=== PATIENT | male | born 1960 | race Caucasian/White ===

== ENCOUNTER 2016-04-21 12:00 | Inpatient (IN) | payer OTHER ==
[~2016-04-21] VITALS: Ht 170.2 cm; Wt 81.6 kg
[~2016-04-21 12:00] MED LIST: ABILIFY20 MG PO; ABILIFY5 MG PO; ASPIRIN81 M3 PO; ATORVASTATIN CA20 MG PO; CEFDINIR300 MG PO; CIPRO500 MG PO; CLOZAPINE PO; CLOZARIL100 M1 PO; INVOKANA300 MG PO; KLONOPIN0.5 M1 PO; LANTUS INS100 UNITS/ SUBQ; LANTUS100 U/ML SC; LISINOPRIL2.5 M1 PO; METFORMIN500 MG PO; PAXIL20 M1 PO; SIMVASTATIN40 M1 PO
[2016-04-21 12:01] VITALS: BP 115/70
--- NOTE | 2016-04-21 12:01 | NUR ---
PT PLACED IN BED 2 AT 1156
--- NOTE | 2016-04-21 12:05 | NUR ---
Patient being evaluated by physician at bedside.
--- NOTE | 2016-04-21 12:05 | NUR ---
PT SHYANNE FROM [facility] FOR EVALUATION OF ALTERED MENTAL STATUS. VEGETABLE CANNER STATES PT ALTERED AT [facility] AND STAFF CHECKED HIS BLOOD SGAR AND FOUND IT TO BE 399. HX DM AND PSYCHIATRIC ISSUES. PT IS AWAKE AND CONFUSED.PT DENIES ANY PAIN AND SOB. NO ACUTE DISTRESS NOTED AT THIS TIME. HOB ELEVATED. MD AWARE OF PT'S CONDITION. ALL MONITORS PLACED IN. PROVIDED WARM BLANKET. NEEDS ATTENRDED. WILL CONTINUE TO MONITOR PT.
[2016-04-21] MEDS ORDERED: NACL 0.9% 1,000 ML IV SCH (12:08)
--- NOTE | 2016-04-21 13:24 | NUR ---
RECIEVED FROM GLORIA FULLER REPORT LACTIC ACID 2.5, DR BARAKAT ALREADY NOTIFIED
--- NOTE | 2016-04-21 13:40 | NUR ---
PT IS AA. NO ACUTE DISTRESS NOTED CAT THIS TIME. STRAIGHT CATH DONE AND PT TOLERATED IT WELL.WILL CONTINUE TO MONITOR PT.
--- NOTE | 2016-04-21 14:40 | NUR ---
REPORT GIVEN TO GLORIA LEGER
--- NOTE | 2016-04-21 15:05 | NUR ---
Patient will be admitted to care of DR LEAL. Admited to TELE. Will go to room 124A. Belongings list completed. Report to GLORIA LEGER.
--- NOTE | 2016-04-21 15:15 | NUR ---
RECEIVED REPORT FROM DIVIDEND CLERK. PT ARRIVED ONTO UNIT VIA GURNEY. PT IS ADMITTED FOR ALOC AND HYPERGLYCEMIA. PT IS A/O X 4, AMBULATORY. NO S/S OF ACUTE CARDIAC/RESPIRATORY DISTRESS/DISCOMFORT. VS STABLE. IV TO R HAND 20G INTACT. LBM 04/21/16. SAFETY MEASURES IN PLACE. CALL LIGHT WITHIN REACH. WILL INITIATE PLAN OF CARE AND CONTINUE TO MONITOR.
[2016-04-21 15:59] VITALS: BP 112/60
[2016-04-21] MEDS ORDERED: INFLUENZA VIRUS VACCINE QUAD 0.5 ML SYR IMVAC SCH (16:30)
[2016-04-21] MEDS: NACL 0.9% 1,000 ML IV SCH (16:53)
[2016-04-21] MEDS ORDERED: VANCOMYCIN PER PHARMACY MC PRN (16:55)
[2016-04-21] MEDS ORDERED: MORPHINE SULFATE 2 MG/ML SYR IVP PRN (16:55)
[2016-04-21] MEDS ORDERED: ONDANSETRON 4 MG/2 ML VIAL IVP PRN (16:55)
[2016-04-21] MEDS ORDERED: ACETAMINOPHEN 325 MG TAB PO PRN (16:55)
--- NOTE | 2016-04-21 17:11 | NUR ---
INSTRUCTED PT ON OBTAINING A SPUTUM ON DEEP COUGH AND TO CALL NURSE ONCE DONE
--- NOTE | 2016-04-21 17:30 | NUR ---
PT SITTING ON SIDE OF BED. NO S/S OF ACUTE DISTRESS. PT DENIES PAIN. IV SITE PATENT AND INTACT. CALL LIGHT WITHIN REACH. WILL CONTINUE TO MONITOR.
--- NOTE | 2016-04-21 19:15 | NUR ---
ENDORSED REPORT TO FIELD CROP II FARMWORKER RN CARLY. PT HAS NO S/S OF ACUTE DISTRESS/DISCOMFORT. PT IN STABLE CONDITION.
--- NOTE | 2016-04-21 19:20 | NUR ---
RECEIVED FROM AM RN IN BED AWAKE AND ALERT. ORIENTED X 4. ROM X 4. AMBULATED BY HIMSELF FROM THE RESTROOM. NO SOB. NO PAIN COMPLAINTS DONE. TELEMETRY MONITORING. CALL LIGHT WITH IN REACH. CARE PLANS FOR THE NIGHT DISCUSSED WITH HIM. IVF SITE TO RIGHT HAND #[address] AND NO INFILTRATION NOTED. VERBALIZES NEEDS WELL IN [place].
[2016-04-21 20:32] VITALS: BP 112/47
[2016-04-21] MEDS: ATORVASTATIN 20 MG TAB PO SCH (20:42)
[2016-04-21] MEDS: clonazePAM 0.5 MG TAB PO SCH (20:45)
[2016-04-21] MEDS: BLOOD GLUCOSE MONITORING 1 DEV DEV FS SCH (20:46)
[2016-04-21] MEDS: PIPER/TAZO 2.25GM/D5W PREMIX 50 ML IV SCH (20:51)
[2016-04-21] MEDS: INSULIN ASPART SLIDING SCALE 100 UNITS/ML VIAL SUBQ PRN (20:51)
[2016-04-21] MEDS ORDERED: INSULIN DETEMIR 100 UNITS/ML 10 ML VIAL SUBQ SCH (21:00)
[2016-04-21] MEDS ORDERED: INSULIN GLARGINE RECOMBINAN SUBQ SCH (21:00)
[2016-04-21] MEDS ORDERED: PIPERACILLIN/TAZOBACTAM 2.25 GM in DEXTROSE 5% 50 ML IV SCH (21:00)
[2016-04-21] MEDS ORDERED: VANCOMYCIN 1GM/DEXT 5% PREMIX 200 ML IV SCH ×2 (21:00→22:23)
--- NOTE | 2016-04-21 22:14 | NUR ---
PT. SLEEPING AT [facility]. NO NOTED ADVERSE REACTIONS TO ZOSYN IV GIVEN.
[2016-04-21] MEDS ORDERED: VANCOMYCIN 1,000 MG VIAL ONE (22:29)
--- NOTE | 2016-04-21 22:49 | NUR ---
VANCOMYCIN 1 GM INFUSED ORDERED AND PROTOCOL BY PHARMACY DOSING. WILL MONITOR FOR ANY ADVERSE REACTIONS TO MEDICATION.
--- NOTE | 2016-04-22 00:45 | NUR ---
PT. MIDNIGHT SNACK PROVIDED . ABLE TO VERBALIZE SIMPLE NEEDS. AMBULATES TO RESTROOM BY HIMSELF. STAND BY ASSIST IN CASE HE FALLS. ROM X 4. NEW IVF LINE INSERTED TO LEFT HAND #22 RT PREVIOUS IV SITE DISCONTINUED BY PT. ACCIDENTALLY WITH TIP INTACT.
[2016-04-22 00:47] VITALS: BP 114/50
--- NOTE | 2016-04-22 02:00 | NUR ---
PT. SLEEPING. NO RESTLESSNESS NOTED. TELEMETRY MONITORING. USES CALL LIGHT FOR HELP. NO S/S OF HYPO/HYPERGLYCEMIA NOTED.
[2016-04-22] MEDS: NACL 0.9% 1,000 ML IV SCH ×3 (02:53→20:42)
[2016-04-22] MEDS: PIPER/TAZO 2.25GM/D5W PREMIX 50 ML IV SCH ×3 (04:16→20:42)
[2016-04-22 04:32] VITALS: BP 100/60
--- NOTE | 2016-04-22 05:16 | NUR ---
AWAKE AT THIS TIME. WENT RESTROOM. NO COMPLAINTS DONE. ROM X 4.
[2016-04-22] MEDS: BLOOD GLUCOSE MONITORING 1 DEV DEV FS SCH ×4 (06:11→21:01)
--- NOTE | 2016-04-22 06:18 | NUR ---
BLOOD SUGAR PER FINGERSTICK =134 MG/DL. NO RISS COVERAGE GIVEN. PT. AWAKE AT THIS TIME AND WATCHING TV. VERBALIZES WELL. TELEMETRY MONITORING.
--- NOTE | 2016-04-22 07:00 | NUR ---
PT ALERT AND ORIENTED X3. BREATHING EVENLY AND UNLABORED. NO SIGNS OF ACUTE DISTRESS. SKIN IS WARM AND DRY. NO SIGNS OF ANY BOWEL/BLADDER DISCOMFORT. DENIES OF ANY PAIN AT THIS TIME. ALL NEEDS ATTENDED, SAFETY PRECAUTIONS MAINTAINED. CALL LIGHT WITHIN REACH.
[2016-04-22 07:47] VITALS: BP 113/63
[2016-04-22] MEDS: ARIPiprazole 10 MG TAB PO SCH (08:16)
[2016-04-22] MEDS: clonazePAM 0.5 MG TAB PO SCH ×2 (08:16→20:43)
[2016-04-22] MEDS: ENOXAPARIN 30 MG/0.3 ML SYR SUBQ SCH (08:16)
[2016-04-22] MEDS: PARoxetine 20 MG TAB PO SCH (08:16)
--- NOTE | 2016-04-22 08:59 | NUR ---
PATIENT HAS BEEN SCREENED AND CATEGORIZED HIGH NUTRITION RISK. PATIENT WILL BE SEEN WITHIN 1-2 DAYS OF ADMISSION. 04/22/16-04/23/[address]
--- NOTE | 2016-04-22 09:00 | NUR ---
CM NOTE INITIAL REVIEW SENT TO [facility] FAX# [phone] ATTN: TRAM # [phone]
[2016-04-22] MEDS: VANCOMYCIN 750 MG in DEXTROSE 5% 250 ML IV SCH ×2 (09:25→21:43)
[2016-04-22] MEDS: INSULIN ASPART SLIDING SCALE 100 UNITS/ML VIAL SUBQ PRN ×2 (11:55→20:59)
[2016-04-22 12:00] VITALS: BP 116/61
--- NOTE | 2016-04-22 12:18 | NUR ---
04/22/16 RD INITIAL ASSESSMENT COMPLETED PLEASE REFER TO NUTRITION ASSESSMENT UNDER CARE ACTIVITY FOR ESTIMATED NUTRITIONAL NEEDS. RD RECOMMENDATIONS: 1. CONTINUE CCHO 60 G DIET TOLERATED 2. MEETING 75% OF ESTIMATED KCAL AND PROTEIN NEEDS 3. RD WILL F/U 3-5 DAYS; MODERATE RISK. JUNG MARIE RD
--- NOTE | 2016-04-22 15:45 | NUR ---
WAS SEEN BY Caro MEDINA. RECEIVED NEW ORDERS. PLACE ON MED SURG MONITORING. NOTED AND CARRIED OUT. UNABLE TO COLLECT C.DIFF STOOL AT THIS TIME. CONTINUE TO MONITOR.
[2016-04-22 16:00] VITALS: BP 106/68
--- NOTE | 2016-04-22 18:55 | NUR ---
PT ALERT AND RESPONSIVE NO SIGNS OF ACUTE DISTRESS. ENDORSED TO ONCOMING SENIOR SPECIALIST NURSE FOR CONTINUITY OF CARE.
--- NOTE | 2016-04-22 19:20 | NUR ---
RECEIVED REPORT FROM GLORIA LUCAS AT BEDSIDE. PT AAOX4, SKIN INTACT. PT HAS IV TO LEFT HAND SL; ASYMPTOMATIC, PATENT AND INTACT. ORIENTED PT TO ROOM AND SURROUNDINGS AND USE OF CALL LIGHT. PT VERBALIZES UNDERSTANDING. SAFETY MEASURES IN PLACE. CALL LIGHT WITHIN REACH. WILL CONTINUE TO MONITOR PT.
[2016-04-22 20:00] VITALS: BP 127/73
[2016-04-22] MEDS: ATORVASTATIN 20 MG TAB PO SCH (20:44)
[2016-04-22] MEDS ORDERED: INSULIN DETEMIR 100 UNITS/ML 10 ML VIAL SUBQ SCH (21:00)
--- NOTE | 2016-04-22 21:02 | NUR ---
PT TOLERATED 2100 MEDS WELL. CALL LIGHT WITHIN REACH.
--- NOTE | 2016-04-22 22:40 | NUR ---
C-DIFF STOOL COLLECTED AND SENT TO LAB.
[2016-04-23] VITALS: BP 131/75
--- NOTE | 2016-04-23 00:40 | NUR ---
PT AMBULATED TO THE RESTROOM WITH STEADY GAIT, PT BACK IN BED NOW RESTING COMFORTABLY. WILL CONTINUE TO MONITOR PT.
--- NOTE | 2016-04-23 01:05 | NUR ---
RECEIVED A CALL FROM [facility] LEVEL 15.1. WILL CONTINUE TO MONITOR PT.
--- NOTE | 2016-04-23 02:05 | NUR ---
PT SLEEPING, NO SIGNS OF DISTRESS OR DISCOMFORT NOTED, WILL CONTINUE TO MONITOR PT.
[2016-04-23] MEDS: PIPER/TAZO 2.25GM/D5W PREMIX 50 ML IV SCH ×2 (04:54→13:15)
--- NOTE | 2016-04-23 04:58 | NUR ---
0500 ZOSYN INFUSING AT THIS TIME, WILL CONTINUE TO MONITOR PT.
--- NOTE | 2016-04-23 05:19 | NUR ---
CALLED [facility] TO ASK ABOUT PT'S MEDICATION CLOZAPINE. NO ONE ANSWER THE PHONE. WILL ENDORSED TO DAY SHIFT NURSE.
--- NOTE | 2016-04-23 05:24 | NUR ---
PT PLACED ON CONTACT PRECAUTIONS FOR POSSIBLE C-DIFF. STOOL SENT TO LAB. WILL CONTINUE TO MONITOR PT.
[2016-04-23] MEDS: BLOOD GLUCOSE MONITORING 1 DEV DEV FS SCH ×3 (06:36→15:59)
--- NOTE | 2016-04-23 07:37 | NUR ---
ENDORSED PT IN STABLE CONDITION TO GLORIA BUTLER FOR CONTINUITY OF CARE.
[2016-04-23 08:00] VITALS: BP 142/86
[2016-04-23] MEDS: NACL 0.9% 1,000 ML IV SCH (08:53)
[2016-04-23] MEDS ORDERED: cloZAPine 100 MG TAB PO SCH ×2 (09:00→21:00)
[2016-04-23] MEDS: clonazePAM 0.5 MG TAB PO SCH (09:07)
[2016-04-23] MEDS: ARIPiprazole 10 MG TAB PO SCH (09:08)
[2016-04-23] MEDS: PARoxetine 20 MG TAB PO SCH (09:08)
[2016-04-23] MEDS: ENOXAPARIN 30 MG/0.3 ML SYR SUBQ SCH (09:08)
--- NOTE | 2016-04-23 09:09 | NUR ---
PT ERICA MEDS WELL.
[2016-04-23] MEDS ORDERED: VANCOMYCIN 1,250 MG in DEXTROSE 5% 500 ML IV SCH (10:00)
--- NOTE | 2016-04-23 11:40 | NUR ---
PT RESTING, ALL NEEDS MET AT THIS TIME.
[2016-04-23] MEDS: INSULIN ASPART SLIDING SCALE 100 UNITS/ML VIAL SUBQ PRN ×2 (12:16→15:39)
--- NOTE | 2016-04-23 13:40 | NUR ---
ALL NEEDS MET AT THIS TIME. NO DISTRESS NOTED.
--- NOTE | 2016-04-23 15:21 | NUR ---
CM NOTE REVIEW SENT TO [facility] FAX# [phone] PH# TRAM [phone]
--- NOTE | 2016-04-23 15:40 | NUR ---
VITALS REMAIN STABLE. NO DISTRESS NOTED.
[2016-04-23 16:00] VITALS: BP 132/77
[2016-04-23] MEDS ORDERED: metroNIDAZOLE 500 MG TAB PO SCH (17:00)
--- NOTE | 2016-04-23 17:02 | NUR ---
PT ERICA MEDS WELL.
--- NOTE | 2016-04-23 17:44 | NUR ---
SPOKE WITH TRICE AT [phone]. INFORMED TRICE TO CALL BACK SOON PT ARRIVES TO FACILITY. INFORMED TRICE OF PT'S PRESCRIPTION.
--- NOTE | 2016-04-23 17:44 | NUR ---
ARRANGEMENTS FOR TAXI MADE.
--- NOTE | 2016-04-23 17:54 | NUR ---
EDUCATED PT WITH D/C INSTRUCTIONS. PT VERBALIZED UNDERSTANDING AND SIGNED PAPERWORK. IV REMOVED WITH CANNULA INTACT. WRISTBANDS REMOVED. VITALS STABLE, NO DISTRESS NOTED.
--- NOTE | 2016-04-23 18:10 | NUR ---
PT WAS WHEELED OUT OF HOSPITAL BY COUTIERIER AND PICKED UP BY TAXI IN NO DISTRESS.
--- NOTE | 2016-04-23 18:39 | NUR ---
RECEIVED CALL FROM PT'S FACILITY. PT BROUGHT BACK TO FACILITY SAFELY.
[2016-04-24] MEDS ORDERED: CLINICAL MONITORING MC SCH (09:00)
== END 2016-04-23 18:10 | DRG 723 ==
LOC: MED 12:00 → MTU 14:02
PROVIDERS: ADMIT Hospitalist; ATTEND Hospitalist
DX: B34.9 Viral infection, unspecified (principal); E11.65 Type 2 diabetes mellitus with hyperglycemia; I10 Essential (primary) hypertension; F99 Mental disorder, not otherwise specified; R05 Cough; Z87.898 Personal history of other specified conditions; Z85.72 Personal history of non-Hodgkin lymphomas; Z87.891 Personal history of nicotine dependence

== ENCOUNTER 2016-05-27 19:13 | Inpatient (IN) | payer OTHER ==
[~2016-05-27] VITALS: Ht 170.2 cm; Wt 69.0 kg
--- NOTE | 2016-05-27 19:15 | NUR ---
PT BIBA TO BED 3 AT THIS TIME.
[2016-05-27 19:26] VITALS: BP 145/60
[2016-05-27] MEDS ORDERED: NACL 0.9% 500 ML IV ONE ×2 (19:32)
--- NOTE | 2016-05-27 19:56 | NUR ---
PATIENT PRESENTS TO ED WITH ALOC FROM [facility]. [facility] STATES PT HAS BEEN ALTERED ALL DAY. PT HAS HISTORY OF DIABETES. PT ACCU CK WAS 'HI' UPON ADMIT. PT UNABLE TO ANSWER MEDICAL QUESTIONS AT THIS TIME. LABS DRAWN AT BEDSIDE. IVF STARTED. MD ASSESSED PT. PATIENT POSITIONED FOR COMFORT; HOB ELEVATED; BEDRAILS UP X2; BED DOWN. ER MD MADE AWARE OF PT STATUS.
--- NOTE | 2016-05-27 19:58 | NUR ---
LABS AT BEDSIDE. PT TO CT VIA GURNEY.
[2016-05-27] MEDS ORDERED: INSULIN HUMAN REGULAR 100 UNITS/ML 10 ML VIAL IVP ONE (20:45)
[2016-05-27] MEDS ORDERED: INSULIN HUMAN REGULAR 100 UNITS in NACL 0.9% 100 ML IV ONE (20:45)
[2016-05-27] MEDS ORDERED: NACL 0.9% 1,000 ML IV ONE (20:45)
--- NOTE | 2016-05-27 21:05 | NUR ---
REGULAR INSULIN GIVEN.
[2016-05-27] MEDS ORDERED: ONDANSETRON 4 MG/2 ML VIAL IVP PRN (21:15)
[2016-05-27] MEDS ORDERED: ACETAMINOPHEN 325 MG TAB PO PRN (21:15)
[2016-05-27] MEDS ORDERED: MORPHINE SULFATE 2 MG/ML SYR IVP PRN (21:15)
[2016-05-27] MEDS ORDERED: INSULIN HUMAN REGULAR 100 UNITS in NACL 0.9% 100 ML IV SCH (21:25)
[2016-05-27] MEDS ORDERED: DEXTROSE 50% 50 ML SYR IVP PRN (21:25)
[2016-05-27] MEDS: BLOOD GLUCOSE MONITORING 1 DEV DEV FS SCH ×3 (21:25→23:25)
--- NOTE | 2016-05-27 21:50 | NUR ---
BS 390. DR OLIVARES NOTIFIED. DR OLIVARES WILL CANCEL INSULIN DRIP AND TRANSFER PT TO THE FLOOR.
--- NOTE | 2016-05-27 22:35 | NUR ---
Patient will be admitted to care of . Admited to TELEMETRY. Will go to [id number]. Belongings list completed. Report to GLORIA ANGUIANO.
[2016-05-27] MEDS ORDERED: DILTIAZEM 25 MG/5 ML VIAL IVP ONE (22:40)
[2016-05-27 22:50] VITALS: BP 156/78
--- NOTE | 2016-05-27 22:50 | NUR ---
RECEIVED REPORT FROM ED RN FOR CONTINUITY OF CARE. PATIENT IS ALERT TO SELF. PATIENT IS AGITATED AND COMBATIVE PULLING OFF GOWN AND PULLING AT LINES, WILL FOLLOW UP WITH MD FOR ANXIETY MEDICATION. SHIFT ASSESSMENT DONE, VS TAKEN, STABLE. PT HAS DRYNESS TO BILATERAL HEELS AND DISCOLORATION ON SACRAL AREA. PT HAS PITTING EDEMA +1 BILATERALLY TO LOWER EXTREMITIES. IV TO LT AC 22 GAUGE PATENT AND FLUSHED, IV TO RT FA 18 GAUGE PATENT AND INFUSING FLUIDS WELL. APPLIED WRISTBANDS/ MRSA SWAB COLLECTED. SAFETY/ FALL PRECAUTIONS ENFORCED. CALL LIGHT WITHIN REACH. WILL CONTINUE TO MONITOR.
--- NOTE | 2016-05-27 23:00 | NUR ---
PT COMBATIVE, RESTLESS, NON-COMPLIANT, PULLING AT IV LINES, AND HEART MONITOR. PAGED MD LEAL. WAITING FOR CALL BACK.
--- NOTE | 2016-05-27 23:03 | NUR ---
SPOKE WITH MD LEAL. GAVE ORDERS FOR 1MG ATIVAN IVP Q6H PRN RESTLESSNESS/AGITATION. WILL ENTER NEW ORDERS.
[2016-05-27] MEDS ORDERED: LORazepam 2 MG/ML VIAL IVP PRN (23:05)
[2016-05-27] MEDS: NACL 0.9% 1,000 ML IV SCH (23:13)
--- NOTE | 2016-05-27 23:15 | NUR ---
PT AGITATED PULLED OUT IV TO LT AC, CANNULA INTACT. MEDICATED WITH ATIVAN PER MD ORDER FOR AGITATION. WILL CONTINUE TO MONITOR.
[2016-05-28] VITALS (10 sets, daily range): BP systolic 116–159; BP diastolic 68–90
[2016-05-28] MEDS: BLOOD GLUCOSE MONITORING 1 DEV DEV FS SCH ×12 (00:47→23:19)
[2016-05-28] MEDS: INSULIN LISPRO SLIDING SCALE 100 UNITS/ML VIAL SUBQ PRN ×6 (00:50→23:22)
--- NOTE | 2016-05-28 00:58 | NUR ---
VS TAKEN, STABLE. BLOOD SUGAR TAKEN, 392, ADMINISTERED INSULIN PER MD ORDER. PATIENT IS SLEEPING. NO S/S OF DISTRESS NOTED ON ROOM AIR. WILL CONTINUE TO MONITOR.
--- NOTE | 2016-05-28 03:40 | NUR ---
BLOOD SUGAR TAKEN, 281, WILL REASSESS. PT IS SLEEPING. WILL CONTINUE TO MONITOR.
--- NOTE | 2016-05-28 04:32 | NUR ---
VS TAKEN, STABLE. PATIENT IS SLEEPING. REPOSITIONED PATIENT AND PROVIDED CHANGE OF LINENS. WILL CONTINUE TO MONITOR.
--- NOTE | 2016-05-28 06:10 | NUR ---
BLOOD SUGAR 358, ADMINISTERED INSULIN PER MD ORDER. PT IS SLEEPING. WILL CONTINUE TO MONITOR.
[2016-05-28] MEDS: NACL 0.9% 1,000 ML IV SCH ×2 (06:12→12:29)
--- NOTE | 2016-05-28 07:15 | NUR ---
ENDORSED PATIENT TO DAY RN FOR CONTINUITY OF CARE, PATIENT IS SLEEPING IN STABLE CONDITION.
--- NOTE | 2016-05-28 07:55 | NUR ---
PATIENT HAS BEEN SCREENED AND CATEGORIZED HIGH NUTRITION RISK. PATIENT WILL BE SEEN WITHIN 1-2 DAYS OF ADMISSION. 05/28/16-05/29/[address]
[2016-05-28] MEDS ORDERED: CLOZAPINE 200 MG PO SCH (09:00)
--- NOTE | 2016-05-28 09:00 | NUR ---
RECEIVED SBAR REPORT FROM NOEMI CASTRO. PT RESTING IN BED. AAOX1. DENIES PAIN. NO S/S OF RESPIRATORY DISTRESS. IV SITE PATENT AND INTACT. SAFETY MEASURES ENSURED. BED IN LOWEST POSITION. CALL LIGHT WITHIN REACH. LINENS CLEAN AND DRY. WILL CONTINUE TO MONITOR.
[2016-05-28] MEDS: PARoxetine 20 MG TAB PO SCH (09:04)
[2016-05-28] MEDS: cloZAPine 100 MG TAB PO SCH (09:04)
[2016-05-28] MEDS: LISINOPRIL 5 MG TAB PO SCH (09:04)
[2016-05-28] MEDS: ARIPiprazole 10 MG TAB PO SCH (09:04)
[2016-05-28] MEDS: clonazePAM 0.5 MG TAB PO SCH ×2 (09:05→21:07)
[2016-05-28] MEDS: ENOXAPARIN 30 MG/0.3 ML SYR SUBQ SCH (09:05)
[2016-05-28] MEDS: CLINICAL MONITORING MC SCH (09:05)
--- NOTE | 2016-05-28 11:20 | NUR ---
PATIENT SEEN BY DR. HUTSON. PATIENT LETHARGIC, NON RESPONSIVE TO PAINFUL STIMULI. RAPID RESPONSE CALLED. VITALS 157/82, HR 92, O2 98%, RR 24. BS CHECKED, 257. CT HEAD ORDERED, PATIENT TAKEN TO CT AND TRANSFERRED TO ICU.
[2016-05-28] MEDS ORDERED: POTASSIUM CHLORIDE 40 MEQ in NACL 0.9% 1,000 ML IV SCH (11:30)
--- NOTE | 2016-05-28 11:45 | NUR ---
TRANSFER OF CARE ENDORSED TO GLORIA ZHANG. PT STILL LETHARGIC, SNORING. NON RESPONSIVE TO PAINFUL STIMULI.
--- NOTE | 2016-05-28 11:45 | NUR ---
TRANSFERRED PT FROM TELE TO ICU BED 3. PT IS UNRESPONSIVE TO NAME STIMULI. ATTACHED PT TO BEDSIDE MONITOR SHOWS SR. PT ON ROOM AIR, NO S/S OF RESPIRATORY DISTRESS NOTED. LUNG SOUNDS CLEAR UPON AUSCULTATION.ABDOMEN SOFT WITH ACTIVE BOWEL SOUNDS. A LARGE AMOUNT OF INCONTINENT URINE NOTED ON PADS, CLEANED PT. SKIN INTACT, HOB ELEVATED 30 DEGREES, SIDE RAILS UPX2 WITH LOW BED POSITION. WILL CONTINUE TO MONITOR.
--- NOTE | 2016-05-28 12:57 | NUR ---
05/28/16 RD INITIAL ASSESSMENT COMPLETED PLEASE REFER TO NUTRITION ASSESSMENT UNDER CARE ACTIVITY FOR ESTIMATED NUTRITIONAL NEEDS. RD RECOMMENDATIONS: 1. CONTINUE CCHO 60 GM DIET TOLERATED PER MD 2. SHOULD PT REQUIRE NUTRITION SUPPORT PLEASE CONSULT RD PRN. 3. RD WILL F/U 2-3 DAYS; HIGH RISK. JUNG MARIE RD
--- NOTE | 2016-05-28 13:00 | NUR ---
PT IS RESTLESS, TRIED TO PULL LEADS. REORIENTED PT .
--- NOTE | 2016-05-28 13:15 | NUR ---
ORTIZ CATH FR. 16 INSERTED ASEPTICALLY. OBTAINED 800 ML CLEAR STRAW COLORED URINE AT ONCE. ORTIZ CATH CLAMPED.
--- NOTE | 2016-05-28 14:00 | NUR ---
ORTIZ CATH. UNCLAMPED OBTAINED 600 ML OF URINE. PT SLEEPING DOES NOT APPEAR TO BE IN ANY DISTRESS
--- NOTE | 2016-05-28 14:18 | NUR ---
CM NOTE INITIAL REVIEW SENT TO [facility] FAX# [phone] PH# TRAM [phone]
--- NOTE | 2016-05-28 15:15 | NUR ---
PT SLEEPING IN BED, NO S/S OF RESPIRATORY DISTRESS NOTED. WILL CONTINUE TO MONITOR.
--- NOTE | 2016-05-28 16:36 | NUR ---
PT AWAKE, ORIENTED PT DATE , TIME, PLACE.
--- NOTE | 2016-05-28 17:11 | NUR ---
PT SLEEPING AGAIN. NO SOB. VSS AT THIS TIME. CALL LIGHT IN REACH, WILL CONTINUE TO MONITOR.
[2016-05-28] MEDS ORDERED: INFLUENZA VIRUS VACCINE QUAD 0.5 ML SYR IMVAC SCH (18:00)
[2016-05-28] MEDS ORDERED: PNEUMOCOCCAL VACCINE 23 MCG/0.5 ML VIAL IMVAC SCH (18:05)
--- NOTE | 2016-05-28 18:14 | NUR ---
FEED PT DINNER ,GOOD APPETITE. ATE 100% OF FOOD.
--- NOTE | 2016-05-28 18:27 | NUR ---
PT SLEEPING IN BED. SAFETY MAINTAINED. CALL LIGHT IN REACH. NO S/S OF RESPIRATORY DISTRESS NOTED. NO DISCOMFORT OR PAIN COMPLAINED. WILL CONTINUE TO MONITOR.
--- NOTE | 2016-05-28 18:37 | NUR ---
PAGED DR. HUTSON REGARDING PT POTASSIUM LEVEL. DR. ROMERO ETL SOFTWARE ENGINEER . WILL FOLLOW UP.
--- NOTE | 2016-05-28 18:40 | NUR ---
DR. ROMERO CALLED BACK. NOTIFIED OF PT POTASSIUM LEVEL AND PT'S CONDITION. PER DR. ROMERO, GIVE PT KCL RIDER 20 MEQ. WILL CARRY OUT.
--- NOTE | 2016-05-28 19:09 | NUR ---
BEDSIDE REPORT GIVEN TO NERA. NUNO VSS AT THIS TIME.
--- NOTE | 2016-05-28 19:13 | NUR ---
RECEIVED BEDSIDE REPORT FROM LEATHA CASTRO. PATIENT IS ASLEEP IN BED, WITH NO SIGNS OF SHORTNESS OF BREATH OR ACUTE DISTRESS NOTED. PATIENT IS ON ROOM AIR. VITAL SIGNS ARE WNL. SINUS RHYTHM ON CLASSROOM TECHNOLOGY TECHNICIAN. BREATH SOUNDS ARE CLEAR UPON AUSCULTATION WITH BOWEL SOUNDS PRESENT. THERE IS A #20 IN THE PATIENT'S RIGHT UPPER ARM RECEIVING NORMAL SALINE 75 ML/HR. SITE IS DRY, INTACT, ASYMPTOMATIC. INITIAL ASSESSMENT COMPLETED. HOB AT 30 DEGREES WITH BED IN LOW POSITION WITH SIDE RAILS UP X2. WILL CONTINUE TO MONITOR PATIENT. Addendum: 05/28/16 at 1938 by Onelia Wagner RN THERE IS A ORTIZ CATHETER PRESENT DRAINING TO GRAVITY WITH SMALL AMOUNT OF CLEAR YELLOW URINE NOTED.
[2016-05-28] MEDS ORDERED: KCL 20 MEQ/WATER INJ PREMIX 100 ML IV SCH (20:00)
[2016-05-28] MEDS ORDERED: CLOZAPINE 300 MG PO SCH (21:00)
[2016-05-28] MEDS ORDERED: cloZAPine 100 MG TAB PO SCH (21:00)
[2016-05-28] MEDS: ATORVASTATIN 20 MG TAB PO SCH (21:02)
--- NOTE | 2016-05-28 21:09 | NUR ---
PATIENT SLEEPING IN BED, BUT CAN BE AROUSED BY NAME. TOLERATED SCHEDULED MEDICATION ADMINISTRATION. NO SIGNS OF SOB OR DISCOMFORT NOTED. CONTINUE TO MONITOR PATIENT.
[2016-05-28] MEDS: INSULIN DETEMIR 100 UNITS/ML 10 ML VIAL SUBQ SCH (21:26)
--- NOTE | 2016-05-28 23:00 | NUR ---
PATIENT SLEEPING IN BED. VITAL SIGNS ARE STABLE WITH NO SIGNS OF SOB OR DISTRESS NOTED. HOB AT 30 DEGREES WITH BED IN LOW POSITION. CONTINUE TO MONITOR PATIENT.
[2016-05-29] VITALS (11 sets, daily range): BP systolic 125–151; BP diastolic 73–87
[2016-05-29] MEDS: NACL 0.9% 1,000 ML IV SCH ×2 (01:05→03:48)
--- NOTE | 2016-05-29 01:58 | NUR ---
PATIENT SLEEPING IN BED. PATIENT'S BREATHING IS EVEN AND UNLABORED. CONTINUE TO MONITOR PATIENT.
--- NOTE | 2016-05-29 04:21 | NUR ---
IRON INSTALLER AT BEDSIDE FOR SCHEDULED MORNING LAB DRAWS.
[2016-05-29] MEDS: BLOOD GLUCOSE MONITORING 1 DEV DEV FS SCH ×4 (05:56→23:13)
[2016-05-29] MEDS: INSULIN LISPRO SLIDING SCALE 100 UNITS/ML VIAL SUBQ PRN ×4 (05:59→23:12)
--- NOTE | 2016-05-29 06:15 | NUR ---
MORNING CARE RENDERED. CHANGED LINENS AND GOWN. PATIENT REPOSITIONED FOR COMFORT. NO SIGNS OF SOB NOTED. HOB AT 30 DEGREES WITH BED IN LOW POSITION. CONTINUE TO MONITOR.
--- NOTE | 2016-05-29 07:09 | NUR ---
PATIENT SLEEPING IN BED AND IS STABLE. ALL PATIENT'S NEEDS ATTENDED TO DURING SHIFT. ENDORSED CONTINUITY OF CARE TO SHAUN CASTRO.
--- NOTE | 2016-05-29 07:25 | NUR ---
RECEIVED PT FROM GLORIA SEGOVIA. PT SEEN AT BEDSIDE SLEEPING COMFORTABLY. PT IS AAOX4, ON ROOM AIR WITH NO S/S DISTRESS OR SOB. PT ON HEAD FILTER PRESS TENDER; RIGHT UPPER ARM 20G RUNNING IVF AT THIS TIME. IV IS PATENT AND INTACT WITH VISIBLE BLOOD RETURN. PT DENIES PAIN AT THIS TIME; ABLE TO MOVE X4 EXTREMITIES AND TURN SELF. SKIN IS WARM, DRY, INTACT. ORTIZ CATHETER IN PLACE DRAINING LIGHT, YELLOW URINE AT THIS TIME. SAFETY MEASURES CHECKED, CALL LIGHT LEFT AT BEDSIDE. WILL CONTINUE TO MONITOR.
--- NOTE | 2016-05-29 08:15 | NUR ---
ADMITTING AT BEDSIDE. PT SIGNED FOR ADMISSION PAPERWORK.
[2016-05-29] MEDS: LISINOPRIL 5 MG TAB PO SCH (08:37)
[2016-05-29] MEDS: clonazePAM 0.5 MG TAB PO SCH (08:39)
[2016-05-29] MEDS: PARoxetine 20 MG TAB PO SCH (08:39)
[2016-05-29] MEDS: ARIPiprazole 10 MG TAB PO SCH (08:40)
[2016-05-29] MEDS: cloZAPine 100 MG TAB PO SCH (08:41)
[2016-05-29] MEDS: ENOXAPARIN 30 MG/0.3 ML SYR SUBQ SCH (08:44)
[2016-05-29] MEDS: CLINICAL MONITORING MC SCH (09:00)
--- NOTE | 2016-05-29 09:38 | NUR ---
CLINICAL MONITORING: CLOZAPINE NON-ADMINISTERED. IT IS FOR PHARMACY MONITORING, PER [place], PHARMACY.
--- NOTE | 2016-05-29 11:21 | NUR ---
PER PATIENT, HE WANTS PNA AND FLU VAX GIVEN NOW. EDUCATION FORMS GIVEN FOR PNA AND FLU VAX. PT VERBALIZED UNDERSTANDING
--- NOTE | 2016-05-29 11:35 | NUR ---
ROUTINE MEDICATIONS ADMINISTERED WITH EDUCATION. FLU AND PNA VAX GIVEN WITH EDUCATION. PT VERBALIZED UNDERSTANDING. PT TOLERATED WELL. WILL CONTINUE TO MONITOR.
--- NOTE | 2016-05-29 12:04 | NUR ---
ASSISTED WITH LUNCH TRAY.
--- NOTE | 2016-05-29 12:30 | NUR ---
DR HUTSON AT NURSING STATION. UPDATED MD ON PATIENT CONDITION. WILL FOLLOW UP ON ORDERS.
--- NOTE | 2016-05-29 12:33 | NUR ---
GOWN CHANGED FOR PATIENT.
[2016-05-29] MEDS ORDERED: POTASSIUM CHLORIDE 10 MEQ TABER PO SCH (13:00)
[2016-05-29] MEDS ORDERED: MAG SULF 2000 MG/WATER PREMIX 50 ML IV SCH (13:30)
--- NOTE | 2016-05-29 14:00 | NUR ---
PT SLEEPING WITH NO S/S DISTRESS OR SOB AT THIS TIME.
--- NOTE | 2016-05-29 15:55 | NUR ---
PT REQUESTED FOR BEDPAN. PT HAD VERY SMALL BM. CLEANED, KITA CARE AND ORTIZ CARE GIVEN. WILL CONTINUE TO MONITOR.
--- NOTE | 2016-05-29 17:36 | NUR ---
ASSISTED PATIENT WITH DINNER TRAY.
--- NOTE | 2016-05-29 18:20 | NUR ---
RECEIVED REPORT FROM SHAUN, ICU NURSE. SHE WILL BRING PT OVER IN THE NEXT 10 MIN OR SO. WILL GET THE ROOM READY.
--- NOTE | 2016-05-29 18:30 | NUR ---
PT CAME ON THE FLOOR WITH SHAUN, ICU NURSE, ON A GURNEY. PT WAS ABLE TO SCOOT FROM ONE GURNEY TO THE OTHER. ATTACHED THE TELE MONITOR, HUNG THE IV, HUNG THE ORTIZ CATH BAG TO THE BED. PT IS ALERT AND ORIENTED. HE IS HUNGRY. WOULD LIKE A SANDWICH. I WILL BRING HIM ONE. SKIN IS INTACT. IV ON THE R UPPER ARM NS AT 75ML. PT IS VERBAL, SPEAKS MAORI. PT IS ON ROOM AIR. I INTRODUCED MYSELF, UPDATED THE BOARD. WILL ENDORSE TO THE FINISHING SUPERVISOR NURSE.
--- NOTE | 2016-05-29 18:30 | NUR ---
TRANSFERRED PATIENT TO [facility]. REPORT GIVEN TO GLORIA ROBERTS. PLACED ON PRACTICAL NURSING FACULTY WITH RN AT BEDSIDE.
--- NOTE | 2016-05-29 19:10 | NUR ---
ENDORSED PT THE STORAGE GARAGE ATTENDANT NURSE AT BEDSIDE FOR CONTINUITY OF CARE. PT IS IN STABLE CONDITION. I WILL GET HIM A SANDWICH BEFORE I LEAVE.
--- NOTE | 2016-05-29 19:15 | NUR ---
RECEIVED PT AAOX4, DENIES ANY PAIN, VITAL SIGNS STABLE, DENIES ANY PAIN, IVF INFUSING WELL, SAFETY MEASURES IN PLACE, CALL LIGHT WITHIN REACH.
[2016-05-29] MEDS: ATORVASTATIN 20 MG TAB PO SCH (20:10)
[2016-05-29] MEDS: INSULIN DETEMIR 100 UNITS/ML 10 ML VIAL SUBQ SCH (20:14)
--- NOTE | 2016-05-29 20:20 | NUR ---
BLOOD SUGAR CHECKED WITH 399 RESULT, DUE LEVIMIR SUB-Q GIVEN, SNACK PROVIDED, ALL NEEDS ATTENDED.
[2016-05-29] MEDS ORDERED: cloZAPine 100 MG TAB PO SCH (21:00)
--- NOTE | 2016-05-29 23:23 | NUR ---
PT SLEEPING, EASILY AROUSABLE, VITAL SIGNS TAKEN, BP SLIGHTLY ELEVATED, ASYMPTOMATIC, DENIES ANY PAIN, NO SOB NOTED, BLOOD SUGAR CHECKED WITH 293 RESULT, COVERAGE GIVE, IVF INFUSING WELL, CONTINUE TO MONITOR CLOSELY.
[2016-05-30] VITALS: BP 154/94
[2016-05-30] MEDS: NACL 0.9% 1,000 ML IV SCH ×2 (03:45→13:20)
[2016-05-30 04:00] VITALS: BP 149/79
--- NOTE | 2016-05-30 04:00 | NUR ---
PT SLEEPING, EASILY AROUSABLE, VITAL SIGNS TAKEN, SCRAP DROP CRANE OPERATOR SLIGHTLY ELEVATED, ASYMPTOMATIC, IVF INFUSING WELL, MONITORED CLOSELY.
[2016-05-30] MEDS: INSULIN LISPRO SLIDING SCALE 100 UNITS/ML VIAL SUBQ PRN ×2 (05:23→13:19)
[2016-05-30] MEDS: BLOOD GLUCOSE MONITORING 1 DEV DEV FS SCH ×2 (05:25→12:00)
--- NOTE | 2016-05-30 05:30 | NUR ---
BLOOD SUGAR CHECKED WITH 201 RESULT, COVERAGE GIVEN, COFFEE AND CRACKERS PROVIDED PER REQUEST, MONITORED CLOSELY.
--- NOTE | 2016-05-30 07:15 | NUR ---
PT AWAKE, NO DISTRESS NOTED, REPORT GIVEN TO GLORIA ROBERTS FOR CONTINUITY OF CARE.
--- NOTE | 2016-05-30 07:16 | NUR ---
RECEIVED REPORT FROM THE MACHINE TOOL REBUILDER NURSE AT BEDSIDE. PT IS ALERT AND ORIENTED. HE IS HUNGRY. PT IS PATIENTLY WAITING FOR HIS BREAKFAST TRAY. HE HAS NO COMPLAINTS. NO SIGNS OF DISTRESS. DENIED ANY PAIN. PT'S IV INTACT; R UA 20G NS AT 75ML/HR. SKIN IS INTACT. HE HAS A ORTIZ CATH. YELLOW, CLEAR URINE 600ML IN BAG. I EMPTIED IT. I UPDATED THE BOARD. EXPLAINED PHYSICAL THERAPY MAY OR MAY NOT BE HERE SINCE TODAY IS TUESDAY. I ENCOURAGE HIM TO CALL ME FIRST TIME HE GETS UP TO GO TO THE BATHROOM, TO CHECK ON HIS STEADINESS. CALL LIGHT WITHIN REACH. WILL CONTINUE TO MONITOR PT.
[2016-05-30 08:00] VITALS: BP 151/90
[2016-05-30] MEDS: CLINICAL MONITORING MC SCH (09:00)
[2016-05-30] MEDS: PARoxetine 20 MG TAB PO SCH (09:10)
[2016-05-30] MEDS: ARIPiprazole 10 MG TAB PO SCH (09:10)
[2016-05-30] MEDS: LISINOPRIL 5 MG TAB PO SCH (09:10)
[2016-05-30] MEDS: ENOXAPARIN 30 MG/0.3 ML SYR SUBQ SCH (09:11)
[2016-05-30] MEDS: cloZAPine 100 MG TAB PO SCH (09:11)
--- NOTE | 2016-05-30 09:15 | NUR ---
ADMINISTERED ALL MORNING MEDS. PT TOLERATED THEM WELL. MET ALL PT'S NEEDS. ALL SAFETY MEASURES IN PLACE. WILL CONTINUE TO MONITOR PT.
--- NOTE | 2016-05-30 11:25 | NUR ---
ASSISTED PT TO THE BATHROOM. PT HAD A BM. ASSISTED HIM BACK INTO BED. STEADY GAIT. WILL CONTINUE TO MONITOR PT.
[2016-05-30 12:00] VITALS: BP 162/96
--- NOTE | 2016-05-30 13:00 | NUR ---
PT IS RESTING AFTER EATING 100% OF HIS LUNCH. PT HAS NO COMPLAINTS. NO PAIN. NO SIGNS OF DISTRESS. WILL CONTINUE TO MONITOR PT.
[2016-05-30] MEDS ORDERED: CLOZAPINE100 M1 PO (13:30)
--- NOTE | 2016-05-30 15:00 | NUR ---
WENT OVER HIS DC EDUCATION AT BEDSIDE. WENT OVER HIS F/U WITH HIS PCP, HIS MEDICATIONS CHANGES, NUTRITION AND HOW TO BETTER CONTROL HIS DM. ANSWERED ALL PT'S QUESTIONS. PT VERBALIZED UNDERSTANDING. SIGNED ALL APPROPRIATE PAPER WORK. REMOVED HIS IV CANNULA INTACT, REMOVED HIS ARM BANDS. REMOVED HIS ORTIZ CATH. PT TOLERATED WELL. NO SIGNS OF BLEEDING NOTED. HE WILL GET DRESSED INTO HIS PERSONAL CLOTHES AND WILL GATHER HIS PERSONAL BELONGINGS. PT IS STABLE. ALERT AND ORIENTED. WILL LET ME KNOW WHEN HIS RIDE GETS HERE SO WE CAN WHEEL HIM OUT.
[2016-05-30 15:15] VITALS: BP 151/90
--- NOTE | 2016-05-30 15:40 | NUR ---
PT WAS WHEELED OUT BY THE P[employer] PAINT TRIMMER WITH HASSOCK MAKER AT HIS SIDE. PT HAS ALL HIS PERSONAL BELONGINGS INCLUDING HIS DC PACKET. REMINDED HIM TO F/U WITH HIS PCP AND TAKE ALL HIS MEDICATIONS. PT VERBALIZED UNDERSTANDING. PT WAS WHEELED OUT TO THE FRONT, IN STABLE CONDITION.
== END 2016-05-30 15:40 | disposition home or self-care (01) | DRG 420 ==
LOC: MED 19:13 → MTU 21:20 → MIC 05-28 12:27 → MTU 05-29 18:37
PROVIDERS: ADMIT Internal Medicine Pulmonary Disease; ATTEND Internal Medicine Pulmonary Disease
DX: E11.01 Type 2 diabetes mellitus with hyperosmolarity with coma (principal); G92 Toxic encephalopathy; E11.65 Type 2 diabetes mellitus with hyperglycemia; Z66 Do not resuscitate; I10 Essential (primary) hypertension; F99 Mental disorder, not otherwise specified; N39.0 Urinary tract infection, site not specified; Z91.19 Patient's noncompliance with other medical treatment and regimen

== ENCOUNTER 2016-12-04 11:41 | Observation (INO) | payer OTHER ==
[~2016-12-04] VITALS: Ht 170.2 cm; Wt 77.1 kg
[~2016-12-04 11:41] MED LIST changes: -ABILIFY20 MG PO; -ABILIFY5 MG PO; +ARIP20TA1 PO; -ASPIRIN81 M3 PO; +ATOR20TA40 PO; -ATORVASTATIN CA20 MG PO; -CEFDINIR300 MG PO; -CIPRO500 MG PO; -CLOZAPINE PO; -CLOZARIL100 M1 PO; +GLU500 PO; -INVOKANA300 MG PO; -KLONOPIN0.5 M1 PO; -LANTUS INS100 UNITS/ SUBQ; +LANTUS SUBQ; -LANTUS100 U/ML SC; +LISI2.5T5 PO; -LISINOPRIL2.5 M1 PO; -METFORMIN500 MG PO; +PAX20 PO; -PAXIL20 M1 PO; -SIMVASTATIN40 M1 PO; +[UNRECOGNIZED DRUG - CODE] PO; +[UNRECOGNIZED DRUG - CODE] PO
[2016-12-04 11:44] VITALS: BP 111/64
[2016-12-04] MEDS ORDERED: ATOR20TA PO (12:01)
[2016-12-04] MEDS ORDERED: CLON0.5T PO (12:01)
[2016-12-04] MEDS ORDERED: FERR325E14 PO (12:01)
[2016-12-04] MEDS ORDERED: CLOZ100T PO (12:01)
[2016-12-04] MEDS ORDERED: FOLI1TAB90 PO (12:01)
[2016-12-04 12:30] LABS: BASOPHILS # (AUTO) 0.3 K/uL (0.00-0.22); HEMOGLOBIN 12.7 g/dL (12.0-18.0)
[2016-12-04 12:36] LABS: BASOPHILS % (AUTO) 4.8 % (0.0-2.0); EOSINOPHILS % (AUTO) 0.3 % (0.0-4.0); HEMATOCRIT 38.1 % (36-52); LYMPHOCYTES # (AUTO) 1.3 K/uL (2.0-11.5); LYMPHOCYTES % (AUTO) 20.4 % (20.5-51.1); MEAN CORPUSCULAR HEMOGLOBIN 31 pg (27-31); MEAN CORPUSCULAR HGB CONC 33 g/dL (33-37); MEAN CORPUSCULAR VOLUME 92 fL (80-94); MONOCYTES # (AUTO) 0.4 K/uL (0.8-1.0); MONOCYTES % (AUTO) 6.1 % (1.7-9.3); NEUTROPHILS # (AUTO) 4.5 K/uL (1.8-7.7); NEUTROPHILS % (AUTO) 68.4 % (42.2-75.2); PLATELET COUNT (AUTO) 232 K/uL (140-450); RED BLOOD CELL COUNT(AUTO) 4.13 MIL/uL (4.20-6.10); RED CELL DISTRIBUTION WIDTH 12.4 % (11.6-13.7); WHITE BLOOD COUNT (AUTO) 6.5 K/uL (4.8-10.8)
[2016-12-04 12:44] LABS: CHLORIDE 96 mmol/L (98-107); POTASSIUM 4.6 mmol/L (3.5-5.1); SODIUM SERUM 130 mmol/L (136-145)
[2016-12-04 12:45] LABS: ANION GAP 17.1 (8-16); CARBON DIOXIDE 21.5 mmol/L (21-32); CREATININE 0.9 mg/dL (0.7-1.3); GFR ARICAN-AMERICAN 113 mL/min (>90); GLUCOSE 273 mg/dL (74-106); UREA NITROGEN, BLOOD 20 mg/dL (7-18)
[2016-12-04 12:51] LABS: ALBUMIN 3.5 g/dL (3.4-5.0); ASPARTATE AMINOTRANSFERASE 16 U/L (15-37); LIPASE 193 U/L (73-393); TOTAL BILIRUBIN 0.3 mg/dL (0.0-1.0)
[2016-12-04] MEDS ORDERED: NACL 0.9% 500 ML IV SCH (14:25)
[2016-12-04 14:41] LABS: APPEARANCE,URINE CLEAR (CLEAR); BILIRUBIN,URINE NEGATIVE (NEGATIVE); BLOOD, URINE TRACE-I (NEGATIVE); COLOR,URINE YELLOW (YELLOW); LEUKOCYTE ESTERASE ,URINE NEGATIVE (NEGATIVE); NITRITE, URINE NEGATIVE (NEGATIVE); UGLUCOSE 3+ (NEGATIVE)
[2016-12-04 14:48] LABS: RBC,URINE 0-5 (RARE) /HPF (0-5); WBC,URINE 0-5 (RARE) /HPF (0-5)
[2016-12-04 14:50] LABS: BARBITURATE, URINE NEGATIVE ng/ml (NEG <=200); BENZODIAZEPINE, URINE NEGATIVE ng/mL (NEG <=200); CANNABINOID, URINE NEGATIVE ng/mL (NEG <=50); COCAINE, URINE NEGATIVE ng/mL (NEG <=300); OPIATE, URINE NEGATIVE ng/mL (NEG <=2000); PHENCYCLIDINE SCREEN,URINE NEGATIVE ng/mL (NEG <=25)
[2016-12-04] MEDS ORDERED: LORazepam 2 MG/ML VIAL IVP PRN (15:30)
[2016-12-04] MEDS ORDERED: ONDANSETRON 4 MG/2 ML VIAL IVP PRN (15:30)
[2016-12-04] MEDS ORDERED: DEXTROSE 50% 50 ML SYR IVP PRN (15:30)
[2016-12-04] MEDS ORDERED: ACETAMINOPHEN 325 MG TAB PO PRN (15:30)
[2016-12-04 16:22] VITALS: BP 158/83
[2016-12-04] MEDS: NACL 0.9% 1,000 ML IV SCH (17:05)
[2016-12-04] MEDS: INSULIN LISPRO SLIDING SCALE 100 UNITS/ML VIAL SUBQ PRN ×2 (17:11→20:29)
[2016-12-04] MEDS: BLOOD GLUCOSE MONITORING 1 DEV DEV FS SCH ×2 (17:16→20:23)
[2016-12-04 20:00] VITALS: BP 119/71
[2016-12-05] VITALS: BP 113/63
[2016-12-05] MEDS: NACL 0.9% 1,000 ML IV SCH ×2 (01:30→11:30)
[2016-12-05 04:00] VITALS: BP 140/85
[2016-12-05] MEDS: BLOOD GLUCOSE MONITORING 1 DEV DEV FS SCH ×2 (06:41→11:30)
[2016-12-05] MEDS: INSULIN LISPRO SLIDING SCALE 100 UNITS/ML VIAL SUBQ PRN ×2 (07:01→13:17)
[2016-12-05 07:58] LABS: BASOPHILS # (AUTO) 0.2 K/uL (0.00-0.22); BASOPHILS % (AUTO) 2.7 % (0.0-2.0); EOSINOPHILS % (AUTO) 0.2 % (0.0-4.0); HEMATOCRIT 38.5 % (36-52); HEMOGLOBIN 12.5 g/dL (12.0-18.0); LYMPHOCYTES # (AUTO) 1.4 K/uL (2.0-11.5); LYMPHOCYTES % (AUTO) 19.2 % (20.5-51.1); MEAN CORPUSCULAR HEMOGLOBIN 30 pg (27-31); MEAN CORPUSCULAR HGB CONC 32 g/dL (33-37); MEAN CORPUSCULAR VOLUME 93 fL (80-94); MONOCYTES # (AUTO) 0.4 K/uL (0.8-1.0); MONOCYTES % (AUTO) 5.5 % (1.7-9.3); NEUTROPHILS # (AUTO) 5.1 K/uL (1.8-7.7); NEUTROPHILS % (AUTO) 72.4 % (42.2-75.2); PLATELET COUNT (AUTO) 222 K/uL (140-450); RED BLOOD CELL COUNT(AUTO) 4.17 MIL/uL (4.20-6.10); RED CELL DISTRIBUTION WIDTH 12.5 % (11.6-13.7); WHITE BLOOD COUNT (AUTO) 7.1 K/uL (4.8-10.8)
[2016-12-05 08:00] VITALS: BP 149/83
[2016-12-05 08:09] LABS: ANION GAP 9.7 (8-16); CARBON DIOXIDE 25.8 mmol/L (21-32); CREATININE 0.7 mg/dL (0.7-1.3); POTASSIUM 4.5 mmol/L (3.5-5.1)
[2016-12-05 08:18] LABS: ALBUMIN 3.1 g/dL (3.4-5.0); MAGNESIUM 1.8 mg/dL (1.8-2.4)
[2016-12-05 08:19] LABS: TOTAL BILIRUBIN 0.3 mg/dL (0.0-1.0)
[2016-12-05] MEDS ORDERED: ENOXAPARIN 40 MG/0.4 ML SYR SUBQ SCH (09:00)
== END 2016-12-05 17:29 | disposition home or self-care (01) ==
LOC: MED 11:41 → MTU 15:33 → UNDOADMIN 15:33
PROVIDERS: ADMIT Hospitalist; ATTEND Hospitalist
DX: R53.1 Weakness (principal); F20.9 Schizophrenia, unspecified; E11.9 Type 2 diabetes mellitus without complications; I10 Essential (primary) hypertension; E86.0 Dehydration; E87.1 Hypo-osmolality and hyponatremia; F17.210 Nicotine dependence, cigarettes, uncomplicated
CPT/HCPCS: 36415; 70450; 71010; 80053; 80305; 81001; 82140; 82948; 83690; 83735; 85025; 87081; 93005; 96360; 96361; 96372; 99285; G0378; G0482; J1650; J1815; J7030

== ENCOUNTER 2017-09-25 13:14 | Inpatient (IN) | payer OTHER ==
[~2017-09-25] VITALS: Ht 170.2 cm; Wt 77.1 kg
[~2017-09-25 13:14] MED LIST changes: +ATOR20TA PO; +CLON0.5T PO; +CLOZ100T PO; +FERR325E14 PO; +FOLI1TAB90 PO; -LISI2.5T5 PO; -[UNRECOGNIZED DRUG - CODE] PO
--- NOTE | 2017-09-25 13:15 | NUR ---
PT BIBA ALS
--- NOTE | 2017-09-25 13:20 | NUR ---
PT PLACED IN BED 8
--- NOTE | 2017-09-25 13:30 | NUR ---
PT BIBA FOR ALOC. PATIENT WAS FOUND IN AN UNAIRCONDITIONED ROOM. PATIENT HAD A RECTAL TEMP OF 102. SKIN IS DRY AND HOT. PRODUCTIVE COUGH AND WHEEZING THROUGHOUT BILATERAL LOBES. IV ESTABLISHED EN ROUTE BY [facility]. PATIENT IS CURRENTLY AOX3. DENIES N/V/D; LUNGS CLEAR BL; HR EVEN AND REGULAR; VSS; PATIENT POSITIONED FOR COMFORT; HOB ELEVATED; BEDRAILS UP X2; BED DOWN. ER MD MADE AWARE OF PT STATUS.
[2017-09-25 13:33] VITALS: BP 165/86
[2017-09-25] MEDS ORDERED: ACETAMINOPHEN EXTRA STRENGTH 500 MG TAB PO ONE (13:35)
[2017-09-25] MEDS ORDERED: ACETAMINOPHEN EXTRA STRENGTH 500 MG TAB ONE (13:35)
[2017-09-25] MEDS ORDERED: methylPREDNISolone SS 125 MG/2 ML VIAL IVP ONE (13:55)
[2017-09-25] MEDS ORDERED: PIPERACILLIN/TAZOBACTAM 4.5 GM in DEXTROSE 5% 100 ML IV ONE (13:55)
[2017-09-25] MEDS ORDERED: ALBUTEROL 0.083% 2.5 MG/3 ML NEBU INH ONE (13:55)
[2017-09-25] MEDS ORDERED: MAGNESIUM SULFATE 50% 1,000 MG in NACL 0.9% 50 ML IV ONE (13:55)
[2017-09-25 14:15] LABS: MEAN CORPUSCULAR HEMOGLOBIN 30 pg (27-31); MEAN CORPUSCULAR HGB CONC 33 g/dL (33-37); MEAN CORPUSCULAR VOLUME 90.2 fL (80-94); PLATELET COUNT (AUTO) 223 K/uL (140-450); RED BLOOD CELL COUNT(AUTO) 3.99 MIL/uL (4.20-6.10); RED CELL DISTRIBUTION WIDTH 13.4 % (11.6-13.7); WHITE BLOOD COUNT (AUTO) 13.5 K/uL (4.8-10.8)
[2017-09-25 14:26] LABS: LYMPHOCYTES % (MANUAL) 7 % (20-46); MONOCYTES % (MANUAL) 3 % (5-12)
[2017-09-25 14:36] LABS: PROTHROMBIN TIME 11.5 secs (10.8-13.4)
[2017-09-25 14:40] LABS: CREATINE KINASE MB 1.4 ng/mL (0-3.6)
[2017-09-25 14:41] LABS: ALBUMIN 3.3 g/dL (3.4-5.0); ANION GAP 14.2 (8-16); CARBON DIOXIDE 20.7 mmol/L (21-32); CREATININE 0.9 mg/dL (0.7-1.3); POTASSIUM 3.9 mmol/L (3.5-5.1); TOTAL BILIRUBIN 0.6 mg/dL (0.0-1.0)
--- NOTE | 2017-09-25 14:41 | NUR ---
PT ASSISTED TO BEDSIDE COMMODE WITHOUT INCIDENCE, UNSTEADY GAIT, PRIMARY RN MADE AWARE.
[2017-09-25] MEDS ORDERED: PIPERACILLIN/TAZOBACTAM 3.375 GM VIAL IV ONE ×2 (14:50→23:44)
--- NOTE | 2017-09-25 14:52 | NUR ---
PT UNABLE TP PRODUCE SPUTUM AT THIS TIME
[2017-09-25] MEDS ORDERED: MISC INJECTION 1 EA in DEXTROSE 5% 100 ML IV SCH (14:55)
[2017-09-25 15:09] LABS: APPEARANCE,URINE CLEAR (CLEAR); BILIRUBIN,URINE NEGATIVE (NEGATIVE); BLOOD, URINE 2+ (NEGATIVE); COLOR,URINE YELLOW (YELLOW); LEUKOCYTE ESTERASE ,URINE NEGATIVE (NEGATIVE); NITRITE, URINE NEGATIVE (NEGATIVE); PH,URINE 6.5 (5.0-9.0); UGLUCOSE 3+ (NEGATIVE)
[2017-09-25 15:15] LABS: RBC,URINE 11-20 (MOD) /HPF (0-5); WBC,URINE 0-5 (RARE) /HPF (0-5)
--- NOTE | 2017-09-25 15:30 | NUR ---
Patient appears to be resting comfortably in bed. Vital Signs within normal limits. Respirations even and unlabored.
[2017-09-25] MEDS ORDERED: DEXTROSE 50% 50 ML SYR IVP PRN (15:55)
[2017-09-25] MEDS ORDERED: ONDANSETRON 4 MG/2 ML VIAL IVP PRN (15:55)
[2017-09-25] MEDS ORDERED: ACETAMINOPHEN 325 MG TAB PO PRN (15:55)
[2017-09-25] MEDS ORDERED: ALBUTEROL 0.083% 2.5 MG/3 ML NEBU INH PRN (15:55)
[2017-09-25] MEDS ORDERED: NACL 0.9% 1,000 ML IV ONE (15:55)
--- NOTE | 2017-09-25 16:40 | NUR ---
PATIENT APPEARS TO BE SLEEPING. VSS.
--- NOTE | 2017-09-25 17:15 | NUR ---
Patient will be admitted to care of DR. MEAD. Admited to TELE. Will go to [id number]. Belongings list completed. Report to GLORIA.
--- NOTE | 2017-09-25 17:15 | NUR ---
PATIENT ARRIVED ON MST UNIT FROM ER VIA BED/GURNEY. PATIENT ABLE TO AMBULATE FROM ER BED TO MST BED WITH STEADY GAIT. NO DISTRESS NOTED. DENIES ANY PAIN AT THIS TIME. V/S STABLE. RESPIRATIONS EVEN, UNLABORED, ON ROOM AIR. AAOX3, CALM, COOPERATIVE, SKIN COLOR APPROPRIATE TO ETHNICITY, WARM TO TOUCH. SKIN IS INTACT, IV SITE INTACT, PATENT, AND STARTED ON IVF PER MD ORDERS. ABDOMEN SOFT, NON-DISTENDED. WHEEZING HEARD THROUGHOUT ALL LUNG LOBES. ORIENTED PATIENT TO ROOM AND CALL LIGHT. REVIEWED PLAN OF CARE WITH PATIENT. PATIENT VERBALIZED UNDERSTANDING. SAFETY MEASURES IN PLACE, CALL LIGHT WITHIN REACH. WILL CONTINUE TO MONITOR.
[2017-09-25 18:12] VITALS: BP 142/77
[2017-09-25] MEDS: ALBUTEROL 0.083% 2.5 MG/3 ML NEBU INH SCH (19:27)
[2017-09-25] MEDS: IPRATROPIUM 0.02% 0.5 MG/2.5 ML NEBU INH SCH (19:27)
--- NOTE | 2017-09-25 19:29 | NUR ---
ENDORSED PLAN OF CARE TO REHAB CARE ASSISTANT RN. PATIENT IS IN STABLE CONDITION.
--- NOTE | 2017-09-25 19:30 | NUR ---
RECEIVED REPORT FROM DAYSHIFT NURSE AT BEDSIDE FOR CONTINUITY OF CARE. AAOX3. PT IV NOTED LAC 20G SALINE LOCK AND L HAND 20G NS 100ML HR. PT IS ON RA. DX: PNE. SKIN INTACT. NO SOB NO S/S OF DISTRESS. PT URINATES IN URINAL. WILL CONTINUE TO MONITOR.
[2017-09-25 20:00] VITALS: BP 148/82
[2017-09-25] MEDS: FERROUS SULFATE 325 MG TABEC PO SCH (20:18)
[2017-09-25] MEDS: LEVOFLOXACIN 750 MG/D5W PREMIX 150 ML IV SCH (20:18)
[2017-09-25] MEDS: metFORMIN 500 MG TAB PO SCH (20:18)
[2017-09-25] MEDS: clonazePAM 0.5 MG TAB PO SCH (20:20)
[2017-09-25] MEDS: INSULIN LISPRO SLIDING SCALE 100 UNITS/ML VIAL SUBQ PRN (20:22)
[2017-09-25] MEDS: INSULIN LANTUS 100 UNITS/ML 10 ML VIAL SUBQ SCH (20:24)
[2017-09-25] MEDS: BLOOD GLUCOSE MONITORING 1 DEV DEV FS SCH ×2 (20:29→20:30)
[2017-09-26] VITALS: BP 118/68
[2017-09-26] MEDS: PIPERACILLIN/TAZOBACTAM 3.375 GM in DEXTROSE 5% 50 ML IV SCH ×2 (00:03→06:00)
[2017-09-26] MEDS: ALBUTEROL 0.083% 2.5 MG/3 ML NEBU INH SCH ×4 (01:12→19:43)
[2017-09-26] MEDS: IPRATROPIUM 0.02% 0.5 MG/2.5 ML NEBU INH SCH ×4 (01:12→19:43)
--- NOTE | 2017-09-26 01:41 | NUR ---
PT SLEEPING NO SOB NO S/S OF DISTRESS WILL CONTINUE TO MONITOR.
[2017-09-26 05:00] VITALS: BP 132/73
[2017-09-26] MEDS ORDERED: PIPERACILLIN/TAZOBACTAM 3.375 GM VIAL IV ONE (05:39)
[2017-09-26] MEDS: BLOOD GLUCOSE MONITORING 1 DEV DEV FS SCH ×4 (05:56→20:32)
[2017-09-26 07:15] LABS: BASOPHILS % (AUTO) 0.3 % (0.0-2.0); HEMATOCRIT 37.3 % (36-52); HEMOGLOBIN 12.3 g/dL (12.0-18.0); LYMPHOCYTES # (AUTO) 1.6 K/uL (2.0-11.5); LYMPHOCYTES % (AUTO) 14.6 % (20.5-51.1); MEAN CORPUSCULAR HEMOGLOBIN 30 pg (27-31); MEAN CORPUSCULAR HGB CONC 33 g/dL (33-37); MEAN CORPUSCULAR VOLUME 91.6 fL (80-94); MONOCYTES # (AUTO) 0.9 K/uL (0.8-1.0); NEUTROPHILS # (AUTO) 8.6 K/uL (1.8-7.7); NEUTROPHILS % (AUTO) 77.1 % (42.2-75.2); PLATELET COUNT (AUTO) 235 K/uL (140-450); RED BLOOD CELL COUNT(AUTO) 4.07 MIL/uL (4.20-6.10); RED CELL DISTRIBUTION WIDTH 13.3 % (11.6-13.7); WHITE BLOOD COUNT (AUTO) 11.1 K/uL (4.8-10.8)
--- NOTE | 2017-09-26 07:25 | NUR ---
ASSUMED CONTINUITY OF CARE. NO SIGNS AND SYMPTOMS OF ACUTE DISTRESS NOTED. INITIAL ASSESSMENT DONE. KEEP COMFORTABLE ON BED. EXPLAINED DIAGNOSIS, PLAN OF CARE, PAIN MANAGEMENT TEACHING, USE OF CALL LIGHT/BED/TV/BATHROOM. VERBALIZED UNDERSTANDING. FALL PRECAUTION APPLIED. CALL LIGHT WITHIN REACH.
--- NOTE | 2017-09-26 07:30 | NUR ---
Patient's Plan of Care was discussed and reviewed with PAPETERIE TABLE ASSEMBLER: Boo HAMILTON
--- NOTE | 2017-09-26 07:32 | NUR ---
ENDORSED REPORT TO DAYSHIFT NURSE AT BEDSIDE FOR CONTINUITY OF CARE.
[2017-09-26] MEDS: metFORMIN 500 MG TAB PO SCH ×2 (07:45→16:37)
[2017-09-26] MEDS: FERROUS SULFATE 325 MG TABEC PO SCH ×2 (07:45→16:37)
[2017-09-26 08:00] VITALS: BP 122/74
[2017-09-26 08:02] LABS: ALBUMIN 3.1 g/dL (3.4-5.0); ANION GAP 10.5 (8-16); CARBON DIOXIDE 25.2 mmol/L (21-32); MAGNESIUM 2.1 mg/dL (1.8-2.4); POTASSIUM 4.7 mmol/L (3.5-5.1); TOTAL BILIRUBIN 0.4 mg/dL (0.0-1.0)
--- NOTE | 2017-09-26 08:20 | NUR ---
DR. MEAD CAME, REVIEWED PT. CHART AND SEEN PT..
[2017-09-26] MEDS: ATORVASTATIN 20 MG TAB PO SCH (08:29)
[2017-09-26] MEDS: clonazePAM 0.5 MG TAB PO SCH ×2 (08:30→20:20)
[2017-09-26] MEDS: ARIPiprazole 10 MG TAB PO SCH (08:31)
[2017-09-26] MEDS: FOLIC ACID 1 MG TAB PO SCH (08:31)
[2017-09-26] MEDS: ENOXAPARIN 40 MG/0.4 ML SYR SUBQ SCH (08:33)
[2017-09-26] MEDS: cloZAPine 100 MG TAB PO SCH (09:06)
--- NOTE | 2017-09-26 10:18 | NUR ---
PATIENT HAS BEEN SCREENED AND CATEGORIZED MODERATE NUTRITION RISK. PATIENT WILL BE SEEN WITHIN 3-5 DAYS OF ADMISSION. 09/28/17 09/30/[address]
[2017-09-26] MEDS: INSULIN LISPRO SLIDING SCALE 100 UNITS/ML VIAL SUBQ PRN (11:34)
[2017-09-26 12:00] VITALS: BP 116/65
--- NOTE | 2017-09-26 12:00 | NUR ---
VITALS SIGNS STABLE. NO C/O PAIN. WILL MONITOR.
--- NOTE | 2017-09-26 15:00 | NUR ---
SLEEPING WELL. NO DISCOMFORT NOTICED. CALL LIGHT WITHIN REACH.
--- NOTE | 2017-09-26 15:11 | NUR ---
Clinical review faxed to [facility] [phone]
[2017-09-26 16:00] VITALS: BP 118/74
--- NOTE | 2017-09-26 16:38 | NUR ---
EEG NURSE CAME FOR PT. EEG AT BEDSIDE. TOLERATED WELL. Addendum: 09/26/17 at 1832 by Donte García LVN WRONG ENTRY: ENTERED AT WRONG PT..
--- NOTE | 2017-09-26 19:15 | NUR ---
BEDSIDE REPORT GIVEN TO ISABEL STOKES -GLORIA. IN STABLE CONDITION.
--- NOTE | 2017-09-26 19:16 | NUR ---
RECEIVED PT ON BED, AAOX4, VITAL SIGNS STABLE, DENIES PAIN, NO SOB NOTED, OCCASIONAL COUGH BUT UNABLE TO PROVIDE SPUTUM AT THIS TIME, PLAN OF CARE DISCUSS, SAFETY MEASURES IN PLACE, CALL LIGHT WITHIN REACH.
[2017-09-26 20:00] VITALS: BP 131/78
[2017-09-26] MEDS: LEVOFLOXACIN 750 MG/D5W PREMIX 150 ML IV SCH (20:13)
[2017-09-26] MEDS: INSULIN LANTUS 100 UNITS/ML 10 ML VIAL SUBQ SCH (20:31)
--- NOTE | 2017-09-26 20:40 | NUR ---
BLOOD SUGAR CHECKED WITH 127 RESULT, SNACK PROVIDED, DUE MEDS ADMINISTERED, BREATHING TX PROVIDED BY RT JACKSON, MONITORED CLOSELY.
[2017-09-26] MEDS ORDERED: cloZAPine 100 MG TAB PO SCH (21:00)
--- NOTE | 2017-09-26 23:50 | NUR ---
PT SLEEPING, EASILY AROUSABLE, VITAL SIGNS STABLE, NO SIGNS OF SOB, CONTINUE TO MONITOR CLOSELY.
[2017-09-27] VITALS: BP 123/68
[2017-09-27] MEDS: IPRATROPIUM 0.02% 0.5 MG/2.5 ML NEBU INH SCH ×3 (01:33→13:14)
[2017-09-27] MEDS: ALBUTEROL 0.083% 2.5 MG/3 ML NEBU INH SCH ×3 (01:33→13:14)
[2017-09-27 04:00] VITALS: BP 125/80
--- NOTE | 2017-09-27 05:45 | NUR ---
AM LABS DRAWN, BLOOD SUGAR CHECKED DONE WITH 106 RESULT, NO SOB NOTED AT THIS TIME, MONITORED CLOSELY.
[2017-09-27] MEDS: BLOOD GLUCOSE MONITORING 1 DEV DEV FS SCH ×3 (06:46→16:42)
--- NOTE | 2017-09-27 07:10 | NUR ---
PT AWAKE, NO SIGNS OF DISTRESS, REPORT GIVEN TO BHAVIK JACKSON FOR CONTINUITY OF CARE.
--- NOTE | 2017-09-27 07:10 | NUR ---
ASSUMED CONTINUITY OF CARE. NO SIGNS AND SYMPTOMS OF ACUTE DISTRESS NOTED. INITIAL ASSESSMENT DONE. EXPLAINED DIAGNOSIS, PLAN OF CARE, PAIN MANAGEMENT TEACHING, USE OF CALL LIGHT/BED/TV/BATHROOM. VERBALIZED UNDERSTANDING. CALL LIGHT WITHIN REACH.
[2017-09-27 07:14] LABS: BASOPHILS % (AUTO) 0.1 % (0.0-2.0); HEMATOCRIT 37.8 % (36-52); HEMOGLOBIN 12.4 g/dL (12.0-18.0); LYMPHOCYTES # (AUTO) 1.7 K/uL (2.0-11.5); LYMPHOCYTES % (AUTO) 20.7 % (20.5-51.1); MEAN CORPUSCULAR HEMOGLOBIN 30 pg (27-31); MEAN CORPUSCULAR HGB CONC 33 g/dL (33-37); MEAN CORPUSCULAR VOLUME 92.8 fL (80-94); MONOCYTES # (AUTO) 0.6 K/uL (0.8-1.0); MONOCYTES % (AUTO) 7.6 % (1.7-9.3); NEUTROPHILS # (AUTO) 5.8 K/uL (1.8-7.7); NEUTROPHILS % (AUTO) 71.6 % (42.2-75.2); PLATELET COUNT (AUTO) 237 K/uL (140-450); RED BLOOD CELL COUNT(AUTO) 4.07 MIL/uL (4.20-6.10); RED CELL DISTRIBUTION WIDTH 13.7 % (11.6-13.7); WHITE BLOOD COUNT (AUTO) 8.1 K/uL (4.8-10.8)
[2017-09-27 07:31] LABS: ALBUMIN 3.1 g/dL (3.4-5.0); ANION GAP 11.7 (8-16); CARBON DIOXIDE 26.8 mmol/L (21-32); POTASSIUM 5.5 mmol/L (3.5-5.1); TOTAL BILIRUBIN 0.1 mg/dL (0.0-1.0)
[2017-09-27] MEDS: metFORMIN 500 MG TAB PO SCH ×2 (07:35→16:43)
[2017-09-27] MEDS: FERROUS SULFATE 325 MG TABEC PO SCH ×2 (07:36→16:43)
[2017-09-27 08:00] VITALS: BP 123/73
[2017-09-27] MEDS: ATORVASTATIN 20 MG TAB PO SCH (08:17)
[2017-09-27] MEDS: ARIPiprazole 10 MG TAB PO SCH (08:17)
[2017-09-27] MEDS: FOLIC ACID 1 MG TAB PO SCH (08:17)
[2017-09-27] MEDS: cloZAPine 100 MG TAB PO SCH (08:18)
[2017-09-27] MEDS: clonazePAM 0.5 MG TAB PO SCH (08:19)
[2017-09-27] MEDS: ENOXAPARIN 40 MG/0.4 ML SYR SUBQ SCH (08:19)
--- NOTE | 2017-09-27 09:25 | NUR ---
DR. MEAD CAME, REVIEWED PT. CHART AND INFORMED OF PT. LATEST LAB RESULTS.
[2017-09-27] MEDS ORDERED: SODIUM POLYSTYRENE 15 GM/60 ML UDBTL PO SCH (09:56)
[2017-09-27] MEDS ORDERED: LEVO750T2 PO (09:57)
[2017-09-27] MEDS: INSULIN LISPRO SLIDING SCALE 100 UNITS/ML VIAL SUBQ PRN ×2 (11:22→16:45)
[2017-09-27 12:00] VITALS: BP 110/68
--- NOTE | 2017-09-27 15:56 | NUR ---
CALLED DR. MEAD AND ASKED IF PT. WILL BE D/C BACK TO [facility]. GOT T.O., READ BACK AND VERIFIED. INFORMED CHARGE NURSE JUAN C DAY.
[2017-09-27 16:00] VITALS: BP 124/78
--- NOTE | 2017-09-27 17:10 | NUR ---
[facility] AND INFORMED THAT WILL BE D/C TONIGHT. PER TRICE -HORSERADISH MAKER, SHE WILL ACCEPT PT. BUT NO AVAILABLE CAR SALESMAN AT THIS TIME. INFORMED TRICE -HORSERADISH MAKER THAT WILL PROVIDE [facility] VOUCHER FOR PT. AND WILL JUST ASKED [facility] FAMILY EDUCATOR FOR APPROVAL. INFORMED CHARGE NURSE JUAN C DAY.
--- NOTE | 2017-09-27 18:10 | NUR ---
CALLED [employer] AT AND SPOKE MISBAH, INFORMED ONCE AGAIN ABOUT [facility]SPORT THAT WAS CALLED EARLIER. PER MISBAH, [facility] WILL ARRIVE IN 15 TO 25 MINUTES. INFORMED PT. AND CHARGE NURSE.
--- NOTE | 2017-09-27 18:35 | NUR ---
CALLED [facility] AT AND SPOKE TO TRICE -CHILDREN'S ENTERTAINER AND INFORMED THAT PT. JUST WAITING FOR [facility] FOR D/C. TRICE -CHILDREN'S ENTERTAINER VERBALIZED UNDERSTANDING VIA PHONE. INFORMED CHARGE NURSE.
--- NOTE | 2017-09-27 18:54 | NUR ---
FOR THE 3RD TIME, CALLED [employer] AT AND SPOKE TO MISBAH REGARDING PT. TRANSPORT. PER -MISBAH, [facility] WILL BE AVAILABLE IN 20 T0 30 MINUTES. INFORMED CHARGE NURSE JUAN C DAY.
--- NOTE | 2017-09-27 18:57 | NUR ---
CALLED [facility] AT SPOKE TO ANALILIA -GERHARD AND INFORMED THAT PT. JUST WAITING FOR [facility] RIDE FOR D/C. PER ANALILIA PIERCE, THEY WILL STILL ACCEPT AND WAIT FOR PT.. INFORMED CHARGE NURSE.
--- NOTE | 2017-09-27 19:20 | NUR ---
REPORT GIVEN TO DARRYL CELAYA -GOVERNMENT RELATIONS ANALYST NURSE AND ALSO ENDORSED ABOUT PT. D/C TO [facility] AND JUST WAITING FOR [facility] TRANSPORT FROM [employer].
--- NOTE | 2017-09-27 19:55 | NUR ---
PT D/C TO [facility] VIA [facility], PT ALERT AND ORIENTED X4, NO C/O PAIN OR RESPIRATORY DISTRESS. INSTRUCTION GIVEN BY DAY NURSE.
== END 2017-09-27 19:55 | disposition home or self-care (01) | DRG 720 ==
LOC: MED 13:14 → MTU 15:58
PROVIDERS: ADMIT Internal Medicine; ATTEND Internal Medicine
DX: A41.9 Sepsis, unspecified organism (principal); J96.00 Acute respiratory failure, unspecified whether with hypoxia or hypercapnia; G93.41 Metabolic encephalopathy; J18.9 Pneumonia, unspecified organism; E44.1 Mild protein-calorie malnutrition; E87.1 Hypo-osmolality and hyponatremia; E11.9 Type 2 diabetes mellitus without complications; F20.9 Schizophrenia, unspecified; J45.909 Unspecified asthma, uncomplicated; I10 Essential (primary) hypertension; E78.5 Hyperlipidemia, unspecified; F17.210 Nicotine dependence, cigarettes, uncomplicated; Z79.899 Other long term (current) drug therapy
CPT/HCPCS: 36415; 71045; 80053; 81001; 82550; 82553; 82948; 83605; 83690; 83735; 83930; 84484; 85025; 85379; 85610; 85730; 87040; 87081; 87086; 93005; 94640; 96365; 96375; 99285; J1650; J1815; J1956; J2543; J2930; J3475; J7030; J7060; J7613; J7644; Q0092

== ENCOUNTER 2018-01-31 13:37 | Emergency (ER) | payer OTHER ==
[~2018-01-31] VITALS: Ht 170.2 cm; Wt 70.8 kg
[~2018-01-31 13:37] MED LIST changes: -ATOR20TA PO; +LEVO750T2 PO; -PAX20 PO
[2018-01-31 13:55] VITALS: BP 139/73
--- NOTE | 2018-01-31 13:59 | NUR ---
PATIENT PRESENTS TO ED WITH C/O LOWER BACK PAIN X 1 DAY. NO TRAUMA OR INJURY, 7/10 PAIN SCALE, VSS; PATIENT POSITIONED FOR COMFORT; HOB ELEVATED; BEDRAILS UP X2; BED DOWN. ER MD MADE AWARE OF PT STATUS.
--- NOTE | 2018-01-31 15:15 | NUR ---
Patient being evaluated by physician at bedside.
[2018-01-31] MEDS ORDERED: KETOROLAC 60 MG/2 ML VIAL IM ONE (15:20)
[2018-01-31] MEDS ORDERED: NAPROXEN 375 MG TAB PO STA (16:29)
[2018-01-31 16:55] VITALS: BP 139/73
[2018-01-31] MEDS ORDERED: NAPROXEN 375 MG TAB PO SCH (21:00)
== END 2018-01-31 16:55 | disposition home or self-care (01) ==
LOC: MED 13:37
DX: S39.012A Strain of muscle, fascia and tendon of lower back, initial encounter (principal); E11.9 Type 2 diabetes mellitus without complications; F17.210 Nicotine dependence, cigarettes, uncomplicated; Z79.899 Other long term (current) drug therapy; Z79.84 Long term (current) use of oral hypoglycemic drugs; X58.XXXA Exposure to other specified factors, initial encounter; Y93.G1 Activity, food preparation and clean up; Y92.89 Other specified places as the place of occurrence of the external cause; Y99.8 Other external cause status
CPT/HCPCS: 96372; 99283; J1885

== ENCOUNTER 2018-08-01 11:06 | Outpatient (CLI) | payer OTHER | END 2018-08-01 20:20 | disposition home or self-care (01) | LOC: MLB 11:06 | DX: J90 Pleural effusion, not elsewhere classified (principal); J98.4 Other disorders of lung; I70.0 Atherosclerosis of aorta | CPT/HCPCS: 71045 ==

== ENCOUNTER 2019-06-20 15:18 | Emergency (ER) | payer OTHER ==
[~2019-06-20] VITALS: Ht 170.2 cm; Wt 69.4 kg
--- NOTE | 2019-06-20 15:18 | NUR ---
Note martineramiro in EDM - 06/20/19 at 1527 by [email or web address] Pt kathy from [facility], covid screening performed outside in ambulance prior to entering ER. Temp 97.7. Pt stated "I want somewhere to rest." Pt denies recent travel, denies cough fever or SOB. Pt placed in bed 11 via gurney.
--- NOTE | 2019-06-20 15:21 | NUR ---
BIBA TAKEN TO BED 11
--- NOTE | 2019-06-20 15:22 | NUR ---
SHYANNE FROM [facility] FOR DIZZINESS AND DRY MOUTH FOR ONE HOUR. DENIES HU, BLURRY VISION, N/V, OR ABDOMINAL PAIN. HR EVEN AND REGULAR; PT DENIES ANY FEVER, CP, SOB, OR COUGH AT THIS TIME; PATIENT STATES PAIN OF 0/10 AT THIS TIME; VSS; PATIENT POSITIONED FOR COMFORT; HOB ELEVATED; BEDRAILS UP X2; BED DOWN. ER MD MADE AWARE OF PT STATUS.
[2019-06-20 15:25] VITALS: BP 143/75
[2019-06-20] MEDS ORDERED: NACL 0.9% 1,000 ML IV ONE ×2 (15:45→16:35)
--- NOTE | 2019-06-20 15:52 | NUR ---
DR. WHITAKER IS EVALUATING PT AT BEDSIDE.
[2019-06-20 16:09] LABS: BASOPHILS % (AUTO) 0.4 % (0.0-2.0); EOSINOPHILS % (AUTO) 0.1 % (0.0-4.0); HEMATOCRIT 38.7 % (36-52); HEMOGLOBIN 12.8 g/dL (12.0-18.0); LYMPHOCYTES # (AUTO) 1.6 K/uL (2.0-11.5); LYMPHOCYTES % (AUTO) 27.4 % (20.5-51.1); MEAN CORPUSCULAR HEMOGLOBIN 31 pg (27-31); MEAN CORPUSCULAR HGB CONC 33 g/dL (33-37); MEAN CORPUSCULAR VOLUME 94.2 fL (80-94); MONOCYTES # (AUTO) 0.3 K/uL (0.8-1.0); MONOCYTES % (AUTO) 5.7 % (1.7-9.3); NEUTROPHILS # (AUTO) 3.9 K/uL (1.8-7.7); NEUTROPHILS % (AUTO) 66.4 % (42.2-75.2); PLATELET COUNT (AUTO) 258 K/uL (140-450); RED CELL DISTRIBUTION WIDTH 13.8 % (11.6-13.7); WHITE BLOOD COUNT (AUTO) 5.9 K/uL (4.8-10.8)
[2019-06-20 16:18] LABS: ALBUMIN 3.6 g/dL (3.4-5.0); ANION GAP 14.4 (8-16); CARBON DIOXIDE 25.2 mmol/L (21-32); CREATININE 1.2 mg/dL (0.6-1.3); POTASSIUM 4.6 mmol/L (3.5-5.1); TOTAL BILIRUBIN 0.2 mg/dL (0.0-1.0)
[2019-06-20 16:28] LABS: APPEARANCE,URINE CLEAR (CLEAR); BILIRUBIN,URINE NEGATIVE (NEGATIVE); BLOOD, URINE TRACE-I (NEGATIVE); COLOR,URINE YELLOW (YELLOW); LEUKOCYTE ESTERASE ,URINE NEGATIVE (NEGATIVE); NITRITE, URINE NEGATIVE (NEGATIVE); UGLUCOSE 3+ (NEGATIVE)
[2019-06-20] MEDS ORDERED: INSULIN REGULAR, HUMAN 100 UNIT/ML VIAL SUBQ ONE (16:35)
[2019-06-20 16:43] LABS: WBC,URINE 0-5 /HPF (0-5)
--- NOTE | 2019-06-20 18:37 | NUR ---
Patient discharged with v/s stable. Written and verbal after care instructions given and explained. Patient verbalized understanding. Ambulatory with steady gait. All questions addressed prior to discharge. Advised to follow up with PMD.
[2019-06-20 18:38] VITALS: BP 158/87
== END 2019-06-20 18:37 | disposition home or self-care (01) ==
LOC: MED 15:18
DX: E11.65 Type 2 diabetes mellitus with hyperglycemia (principal); F17.200 Nicotine dependence, unspecified, uncomplicated; I10 Essential (primary) hypertension; F20.9 Schizophrenia, unspecified; Z79.84 Long term (current) use of oral hypoglycemic drugs; Z79.899 Other long term (current) drug therapy
CPT/HCPCS: 36415; 80053; 81001; 84484; 85025; 96360; 96361; 96372; 99283; J1815; J7030

== ENCOUNTER 2019-07-09 15:13 | Inpatient (IN) | payer OTHER ==
[~2019-07-09] VITALS: Ht 170.2 cm; Wt 68.0 kg
--- NOTE | 2019-07-09 15:13 | NUR ---
Patient SHYANNE GAGE from [facility], transferred to bed 7. RN evaluating patient at bedside.
[2019-07-09 15:25] VITALS: BP 136/62
--- NOTE | 2019-07-09 15:34 | NUR ---
58 Y/M SHYANNE FROM [facility]. PT C UNSTEADY GAIT, "NOT FEELING WELL", DIZZY X 2 DAY. PT REPORTS HE IS FEELING NAUSEOUS AND VOMIT X1 TODAY. PT A&O X3 TO PERSON, PLACE, AND EVENT. VSS. PT REPORTS HEADACHE /. PT DENIES THE SENSATION THAT THE ROOM IS SPINNING. DENIES SOB, COUGH, CHEST PAIN,N DIARRHEA OR DYSURIA. RR EVEN AND UNLABORED. LUNGS CLEAR. ABD SOFT. BS ACTIVE X 4. HX- DM, SCHIZO, HTN NKDA
[2019-07-09] MEDS ORDERED: NACL 0.9% 1,000 ML IV ONE ×2 (15:40→17:25)
--- NOTE | 2019-07-09 15:50 | NUR ---
STAT LABS DRAWN AND GIVEN TO HYDROCHLORIC AREA SUPERVISOR.
--- NOTE | 2019-07-09 15:56 | NUR ---
URINE CUP AT BEDSIDE. PT UNABLE TO PROVIDE URINE AT THIS TIME.
[2019-07-09 15:57] LABS: BASOPHILS % (AUTO) 0.5 % (0.0-2.0); HEMATOCRIT 39.6 % (36-52); LYMPHOCYTES # (AUTO) 1.1 K/uL (2.0-11.5); LYMPHOCYTES % (AUTO) 19.4 % (20.5-51.1); MEAN CORPUSCULAR HEMOGLOBIN 32 pg (27-31); MEAN CORPUSCULAR HGB CONC 33 g/dL (33-37); MEAN CORPUSCULAR VOLUME 96.1 fL (80-94); MONOCYTES # (AUTO) 0.3 K/uL (0.8-1.0); MONOCYTES % (AUTO) 4.3 % (1.7-9.3); NEUTROPHILS # (AUTO) 4.4 K/uL (1.8-7.7); NEUTROPHILS % (AUTO) 75.8 % (42.2-75.2); PLATELET COUNT (AUTO) 239 K/uL (140-450); RED BLOOD CELL COUNT(AUTO) 4.12 MIL/uL (4.20-6.10); RED CELL DISTRIBUTION WIDTH 14.1 % (11.6-13.7); WHITE BLOOD COUNT (AUTO) 5.8 K/uL (4.8-10.8)
--- NOTE | 2019-07-09 16:00 | NUR ---
CALLED LAB AND SPOKE TO ANDIE FOR URINE COLLECTION.
--- NOTE | 2019-07-09 16:07 | NUR ---
DR. WHITAKER AT BEDSIDE.
[2019-07-09 16:08] LABS: APPEARANCE,URINE CLEAR (CLEAR); BILIRUBIN,URINE 2+ (NEGATIVE); BLOOD, URINE NEGATIVE (NEGATIVE); LEUKOCYTE ESTERASE ,URINE NEGATIVE (NEGATIVE); NITRITE, URINE NEGATIVE (NEGATIVE); UGLUCOSE NEGATIVE (NEGATIVE)
[2019-07-09 16:15] LABS: ALBUMIN 3.3 g/dL (3.4-5.0); ANION GAP 13.9 (8-16); CARBON DIOXIDE 25.5 mmol/L (21-32); CREATININE 1.7 mg/dL (0.6-1.3); POTASSIUM 5.4 mmol/L (3.5-5.1); TOTAL BILIRUBIN 0.2 mg/dL (0.0-1.0)
[2019-07-09 16:30] LABS: COLOR,URINE STRAW (YELLOW)
--- NOTE | 2019-07-09 16:44 | NUR ---
RT AT BEDSIDE FOR ABG BLOOD DRAW.
[2019-07-09] MEDS ORDERED: NACL 0.45% 1,000 ML IV ONE (17:25)
--- NOTE | 2019-07-09 17:39 | NUR ---
CAP ACCUCHECK 592, DR. JOY MADE AWARE.
--- NOTE | 2019-07-09 17:47 | NUR ---
DIABETIC DIET ORDERED FOR PATIENT, CALLED DIETARY AND LEFT VOICEMAIL TO CONFIRM DINNER ORDER.
[2019-07-09] MEDS ORDERED: ALBUTEROL 0.083% 2.5 MG/3 ML NEBU INH PRN (17:55)
[2019-07-09] MEDS ORDERED: HYDROcodone/APAP 5/325 MG 1 TAB TAB PO PRN (17:55)
[2019-07-09] MEDS ORDERED: MORPHINE SULFATE 4 MG/ML SYR IVP PRN (17:55)
[2019-07-09] MEDS ORDERED: DEXTROSE 50% 50 ML SYR IVP PRN (17:55)
[2019-07-09] MEDS ORDERED: ONDANSETRON 4 MG/2 ML VIAL IVP PRN (17:55)
[2019-07-09] MEDS ORDERED: LORazepam 2 MG/ML VIAL IVP PRN (17:55)
[2019-07-09] MEDS ORDERED: INSULIN REGULAR, HUMAN 100 UNIT/ML VIAL IVP SCH (18:00)
[2019-07-09] MEDS ORDERED: INSULIN LANTUS 100 UNITS/ML 10 ML VIAL SUBQ SCH (18:00)
--- NOTE | 2019-07-09 18:05 | NUR ---
PT SITTING UPRIGHT EATING BED BED.
--- NOTE | 2019-07-09 18:55 | NUR ---
Patient appears to be resting in bed. Vital Signs within normal limits. Respirations even and unlabored.
--- NOTE | 2019-07-09 19:20 | NUR ---
Patient will be admitted to care of DR. VALDEZ. Admited to TELE. Will go to room 125B . Belongings list completed. [facility]
--- NOTE | 2019-07-09 19:20 | NUR ---
RECEIVED ENDORSEMENT FROM ER NURSE ARLENE. PATIENT TRANSFERRED SAFELY TO BED. PATIENT IS AOX3. ABLE TO MAKE NEEDS KNOWN. DENIES PAIN. IV SITE TO RAC 20G. CALL LIGHT WITHIN REACH.
--- NOTE | 2019-07-09 19:30 | NUR ---
ADMITTED PATIENT. RESPIRATION EVEN AND UNLABORED. NO SOB. LOW BED IN PLACE. INITIAL ASSESSMENT DONE PER PROTOCOL. MRSA NARES SWAB DONE PER PROTOCOL. V/S TAKEN AND RECORDED. CALL LIGHT WITHIN REACH. WILL CONTINUE TO MONITOR.
[2019-07-09] MEDS: LACTATED RINGERS 1,000 ML IV SCH (20:22)
[2019-07-09] MEDS: BLOOD GLUCOSE MONITORING 1 DEV DEV FS SCH (20:25)
--- NOTE | 2019-07-09 20:25 | NUR ---
BLOOD SUGAR CHECKED 442. LANTUS INSULIN 20 UNITS SQ GIVEN X1 ORDERED + HUMALOG 14 UNITS SQ PRN FOR INCREASED BLOOD SUGAR. GIVEN ORDERED. PATIENT TOLERATED WELL. DENIES PAIN. WILL CONTINUE TO MONITOR.
[2019-07-09] MEDS: INSULIN LISPRO SLIDING SCALE 100 UNITS/ML VIAL SUBQ PRN (20:26)
[2019-07-10] VITALS: BP 113/60
--- NOTE | 2019-07-10 | NUR ---
CHECKED PATIENT. V/S TAKEN AND RECORDED. PATIENT IS RESTING. SO S/SX OF HYPO/HYPERGLYCEMIA. NO SOB. KEPT COMFORTABLE. CALL LIGHT WITHIN REACH. WILL CONTINUE TO MONITOR.
[2019-07-10] MEDS: LACTATED RINGERS 1,000 ML IV SCH ×3 (02:13→18:53)
--- NOTE | 2019-07-10 02:13 | NUR ---
IV FLUID LR IS STILL INFUSING AT THIS TIME. PATIENT IS SLEEPING. RESPIRATION EVEN AND UNLABORED. WILL CONTINUE TO MONITOR.
--- NOTE | 2019-07-10 03:37 | NUR ---
PATIENT IS SLEEPING AT THIS TIME. NOT IN ANY ACUTE DISTRESS. CALL LIGHT WITHIN REACH. WILL CONTINUE TO MONITOR.
[2019-07-10 04:00] VITALS: BP 156/85
--- NOTE | 2019-07-10 04:30 | NUR ---
PATIENT WENT TO THE RESTROOM. V/S TAKEN AND RECORDED. DENIES PAIN. NOT IN ANY ACUTE DISTRESS. ASKED IF PATIENT IS OK. PATIENT VERBALIZED "I'M OK." REPLACED IVF TO A NEW BAG OF LR 1L ORDERED. IV LINE INTACT AND PATENT.
[2019-07-10 06:14] LABS: BASOPHILS % (AUTO) 0.1 % (0.0-2.0); HEMATOCRIT 34.2 % (36-52); HEMOGLOBIN 11.4 g/dL (12.0-18.0); LYMPHOCYTES # (AUTO) 1.9 K/uL (2.0-11.5); LYMPHOCYTES % (AUTO) 29.9 % (20.5-51.1); MEAN CORPUSCULAR HEMOGLOBIN 32 pg (27-31); MEAN CORPUSCULAR HGB CONC 33 g/dL (33-37); MEAN CORPUSCULAR VOLUME 94.7 fL (80-94); MONOCYTES # (AUTO) 0.3 K/uL (0.8-1.0); MONOCYTES % (AUTO) 5.4 % (1.7-9.3); NEUTROPHILS # (AUTO) 4.1 K/uL (1.8-7.7); NEUTROPHILS % (AUTO) 64.6 % (42.2-75.2); PLATELET COUNT (AUTO) 216 K/uL (140-450); RED BLOOD CELL COUNT(AUTO) 3.62 MIL/uL (4.20-6.10); RED CELL DISTRIBUTION WIDTH 13.8 % (11.6-13.7); WHITE BLOOD COUNT (AUTO) 6.3 K/uL (4.8-10.8)
[2019-07-10] MEDS: BLOOD GLUCOSE MONITORING 1 DEV DEV FS SCH ×4 (06:32→20:37)
[2019-07-10] MEDS: INSULIN LISPRO SLIDING SCALE 100 UNITS/ML VIAL SUBQ PRN ×4 (06:34→20:38)
[2019-07-10 06:43] LABS: ALBUMIN 2.8 g/dL (3.4-5.0); ANION GAP 9.5 (8-16); CARBON DIOXIDE 27.9 mmol/L (21-32); POTASSIUM 4.4 mmol/L (3.5-5.1); TOTAL BILIRUBIN 0.2 mg/dL (0.0-1.0)
--- NOTE | 2019-07-10 06:50 | NUR ---
GAVE HUMALOG 10 UNITS SQ FOR BLOOD SUGAR OF 303. PATIENT IS RESTING. RESPIRATION EVEN AND UNLABORED. NO SOB. DENIES PAIN. AFEBRILE THE WHOLE SHIFT. KEPT COMFORTABLE. WILL ENDORSE TO AM SHIFT RN FOR CONTINUITY OF CARE.
--- NOTE | 2019-07-10 07:25 | NUR ---
RECEIVED PT FROM BLOCKER AND POLISHER GOLD WHEEL NURSELETTY, PT IS AWAKE AND LYING ON THE BED WITH SIDE RAILS UP AND CALL LIGHT WITHIN REACH, AOX4, ON ROOM AIR AND DENIES PAIN, IV LINE NOTED ON THE RT AC G. 20 WITH LACTATED RINGER INFUSING AT 120ML/HR, INTACT, NO SIGN OF DISTRESS NOTED AND WILL MONTIOR PT.
[2019-07-10 08:00] VITALS: BP 138/77
--- NOTE | 2019-07-10 08:57 | NUR ---
PATIENT HAS BEEN SCREENED AND CATEGORIZED MODERATE NUTRITION RISK. PATIENT WILL BE SEEN WITHIN 3-5 DAYS OF ADMISSION. 07/12/19 07/14/[address]
--- NOTE | 2019-07-10 10:00 | NUR ---
PHYSICAL THERAPY EVALUATION WAS BEING DONE TO PT NOW AND NOTED THAT PT HAS A SHUFFLING GAIT, AND VERBALIZED BY THERAPIST WELL, WHICH MAY PUT THE PT AT RISK FOR FALL, WILL INFORM MD.
--- NOTE | 2019-07-10 11:37 | NUR ---
Drainage Engineer Note: Basic Screen: Yes High Risk DC Screen [place]: RENU Toro Relationship: BROTHER Pre-Admission Living Arrangements: [facility] Other: [facility] Prior ADL Independent Current Home Health Name/Tel: N/A Current DME/02 Name/Tel: N/A Current Hospice Name/Tel: N/A Current Dialysis Name/Tel: N/A Healthcare Decision Maker: Community/disease case manager rn Other: [facility] Advance Directive No Physician Orders for Life Sustaining Treatment Form No Patient/Family Have Educational Needs No Discipline: Case Mgt/Social Svcs Tentative Discharge Plan/Destination: [facility] Other: [facility] Will require assistance post discharge: No Referred to Health Education Teacher: No Tentative Discharge Plan Summary: Patient is a 58-year-old male admitted for hyperglycemia. Patient has PMHX of diabetes and hypertension. Patient was admitted from [facility]. SW contacted Chikis from [facility] [phone]. Per Chikis, patient is alert/oriented at baseline and is independent with ADLs. Chikis stated that patient's family is no longer involved in patient's care. Chikis stated that PCP and [facility] are who makes medical decisions for patient. Chikis stated that patient's psychiatrist is Dr. Higinio Jacobson. Tentative discharge plan is for patient to return to [facility]. No further needs identified. Signature: YUNIOR Mars Date: Jul 10, 2019 Time: 11:36
[2019-07-10 12:00] VITALS: BP 153/93
--- NOTE | 2019-07-10 12:00 | NUR ---
PT WAS GIVEN INSULIN 8 UNITS ON THE LEFT UA FOR BLOOD GLUCOSE OF 284, WILL MONITOR PT.
--- NOTE | 2019-07-10 13:49 | NUR ---
DISCHARGE PLANNING: THIS IS A 59 Y/O MALE PATIENT FROM [facility], WHO WAS BROUGHT IN DUE DIZZINESS. PAST MEDICAL HISTORY INCLUDE DIABETES, HTN. INITIAL DIAGNOSIS OF HYPERGLYCEMIA. CURRENT LABS INCLUDE WBC 6.3, H/H 11.4/34.2, NA/K 136/4.4, BUN/CREA 19/1.0, BLOOD SUGAR ON ADMISSION >600, TODAY 284. IN INSULIN SLIDING SCALE. PT EVAL IN PLACE. DC PLAN PENDING PT RECOMMENDATIONS. Addendum: 07/11/19 at 1025 by Adalgisa Dasilva CM PATIENT WAS DC'D LAST NIGHT 07/10/2019 AT 2200 BACK TO [facility]. [facility] WAS USED. JULIO OF [facility] MADE AWARE OF DC ORDER FOR HOME HEALTH FOR PT. SHE STATED TO FAX OVER ORDER TO [facility] TO [facility] SHE ALSO STATED TO CONTACT DM OF [facility] AT [phone] AND TO SEND CLINICALS AND ORDER TO [phone]. CLINICALS AND ORDER SENT TO [facility] AND [facility]. WILL FOLLOW UP. Addendum: 07/11/19 at 1050 by Adalgisa Dasilva CM PER DM OF [facility], THEY ARE ABLE TO ACCEPT THE PATIENT. CONTACTED [facility], ABLE TO SPEAK TO NINOSKA. MADE HIM AWARE [email or web address]. HE STATED HE WILL LET TRICE BOOK AGENT KNOW. Addendum: 07/11/19 at 1112 by Adalgisa Dasilva CONTACTED [facility] AT [phone], ABLE TO SPEAK TO LAINEY. SHE PLACED ME ON HOLD TO SPEAK TO HER PENS AND PENCILS REPAIRER [employer]ER[facility]. SHE STATED THAT [facility] ALREADY SUBMITTED A CLAIM FOR AFTER HOURS TRANSPORT AND THEY WILL BE CONTACTING [place].
[2019-07-10 16:00] VITALS: BP 141/87
--- NOTE | 2019-07-10 17:24 | NUR ---
PT WAS GIVEN 6 UNITS INSULIN ON THE RT UA FOR THE BLOOD GLUCOSE OF 219, WILL MONITOR PT.
--- NOTE | 2019-07-10 17:30 | NUR ---
DR. VALDEZ CAME TO PT'S ROOM AND ASSESSED PT.
--- NOTE | 2019-07-10 18:00 | NUR ---
CALLED [facility] AT [phone], SPOKE TO MIL AND VERIFIED THE PT'S MEDICATIONS AND INFORMED THAT PT WILL BE DISCHARGE TONIGHT.
[2019-07-10 19:30] VITALS: BP 121/66
--- NOTE | 2019-07-10 19:30 | NUR ---
ENDORSED PT TO REALTIME COURT REPORTER NURSESTEVAN FOR CONTINUITY OF DISCHARGE PROCESS, [facility] HAS NOT ARRIVED YET, PT IS STABLE AT THIS TIME, DISCHARGE PAPER WORK HANDED TO DAIRY INSPECTORREALTIME COURT REPORTER STEVAN.
--- NOTE | 2019-07-10 19:31 | NUR ---
RECD. RESTING IN BED, AWAKE, A/OX4. RESPIRATION EVEN AND UNLABORED. IV SALINE LOCK AT THE RIGHT AC G 20, PATENT AND INTACT. AWARE OF DISCHARGED TONIGHT BACK TO [facility]. SIGNED ALL DISCHARGE PAPERS. WAITING FOR AMBULANCE TO PICK HIM UP IN THIRTY MINUTES ENDORSED BY AM NURSE. VS TAKEN, STABLE. DENIES PAIN, 0/10.
--- NOTE | 2019-07-10 19:31 | NUR ---
Patient's Plan of Care was discussed and reviewed with RENETTA: STEVAN. CALL LIGHT IS WITHIN REACH. WILL CONTINUE TO MONITOR.
--- NOTE | 2019-07-10 20:20 | NUR ---
FOLLOW UP WITH [facility] FOR PATIENT TO BE PICKED UP. CUSTOMER SERVICE STATED ALL FORK LIFT TECHNICIAN ALREADY CLOCK OUT. INFORMED CHARGE NURSE DENIS.
--- NOTE | 2019-07-10 20:37 | NUR ---
DUE PO MEDICATIONS FOR THE NIGHT GIVEN. ATE 100% OF SNACK.
[2019-07-10] MEDS ORDERED: clonazePAM 0.5 MG TAB PO SCH (21:00)
[2019-07-10] MEDS ORDERED: ATORVASTATIN 20 MG TAB PO SCH (21:00)
[2019-07-10] MEDS ORDERED: cloZAPine 100 MG TAB PO SCH (21:00)
--- NOTE | 2019-07-10 21:15 | NUR ---
CHARGE NURSE DENIS WAS ABLE TO SECURE [facility] TO DIRECTOR PHONE PATIENT.
--- NOTE | 2019-07-10 21:30 | NUR ---
INFORMED DEE OF [facility] THAT PATIENT WILL BE PICKED UP AROUND 2200.
--- NOTE | 2019-07-10 21:45 | NUR ---
RESTING IN BED, ALREADY DRESSED UP READY FOR DISCHARGE, IV SALINE LOCK TAKEN OFF.
--- NOTE | 2019-07-10 21:50 | NUR ---
[facility] CAME TO OPERATIONAL INTELLIGENCE ANALYST PATIENT. [facility]IV[facility] TO [facility]. ALL BELONGINGS TAKEN BY PATIENT.
--- NOTE | 2019-07-10 22:00 | NUR ---
TAKEN TO HOSPITAL LOBBY PARKING VIA GURNEY IN STABLE CONDITION ACCOMPANIED BY AMBULANCE PERSONNEL TO [facility].
[2019-07-11] MEDS ORDERED: ARIPiprazole 10 MG TAB PO SCH (09:00)
--- NOTE | 2019-07-12 11:54 | NUR ---
PCP Appointment: ANNA contacted assigned PCP for hospital follow up for patient. Per [facility], patient would have to call because patient is new. Closest [facility] is also in [facility]. SW will inform patient.
== END 2019-07-10 22:00 | disposition home or self-care (01) | DRG 420 ==
LOC: MED 15:13 → INTOOBSV 17:57 → MMU 17:57 → OBSVTOIN 17:57 → MTU 19:06 → MMU 20:07
PROVIDERS: ADMIT Hospitalist; ATTEND Hospitalist
DX: E11.00 Type 2 diabetes mellitus with hyperosmolarity without nonketotic hyperglycemic-hyperosmolar coma (NKHHC) (principal); N17.0 Acute kidney failure with tubular necrosis; E11.22 Type 2 diabetes mellitus with diabetic chronic kidney disease; E87.5 Hyperkalemia; E11.65 Type 2 diabetes mellitus with hyperglycemia; E87.1 Hypo-osmolality and hyponatremia; F20.9 Schizophrenia, unspecified; G47.00 Insomnia, unspecified; N18.9 Chronic kidney disease, unspecified; I12.9 Hypertensive chronic kidney disease with stage 1 through stage 4 chronic kidney disease, or unspecified chronic kidney disease
CPT/HCPCS: 36415; 36600; 80053; 81003; 82803; 82948; 84484; 85025; 87081; 96361; 96374; 97112; 97116; 97161-GP; 99291; J1815; J7120

== ENCOUNTER 2019-07-20 17:44 | Emergency (ER) | payer OTHER ==
[~2019-07-20] VITALS: Ht 170.2 cm; Wt 77.1 kg
[2019-07-20 18:06] VITALS: BP 112/68
--- NOTE | 2019-07-20 18:06 | NUR ---
58 Y/O M C/C DIZZINESS/NAUSEA/VOMITING X5 DAYS PER PT A/OX4. PT [facility]A [facility]. PER EMS PT BEEN SLEEPING MORE THAN USUAL, LETHARGIC, DIZZY. PT PRESENTS IN NO DISTRESS, PUPILS PERRLA, NEURO WDL. NKA. HX SCHIZOPHRENIA,DM,HTN. RX LISINOPRIL,METFORMIN,LANTUS. NO DIARRHEA. SIDE RAIL X1. PER FACILITY PCP: PT WEAK, UNABLE TO GET UP AND AMBULATE.
[2019-07-20] MEDS ORDERED: NACL 0.9% 1,000 ML IV ONE ×2 (18:25→21:25)
--- NOTE | 2019-07-20 19:14 | NUR ---
REPORT GIVEN TO SHELLI CASTRO FOR CONTINUITY OF CARE
[2019-07-20 19:43] LABS: BASOPHILS % (AUTO) 0.1 % (0.0-2.0); HEMATOCRIT 37.3 % (36-52); HEMOGLOBIN 12.3 g/dL (12.0-18.0); LYMPHOCYTES # (AUTO) 0.9 K/uL (2.0-11.5); MEAN CORPUSCULAR HEMOGLOBIN 31 pg (27-31); MEAN CORPUSCULAR HGB CONC 33 g/dL (33-37); MEAN CORPUSCULAR VOLUME 94.8 fL (80-94); MONOCYTES # (AUTO) 0.4 K/uL (0.8-1.0); MONOCYTES % (AUTO) 6.1 % (1.7-9.3); NEUTROPHILS # (AUTO) 5.3 K/uL (1.8-7.7); NEUTROPHILS % (AUTO) 79.8 % (42.2-75.2); PLATELET COUNT (AUTO) 224 K/uL (140-450); RED BLOOD CELL COUNT(AUTO) 3.93 MIL/uL (4.20-6.10); RED CELL DISTRIBUTION WIDTH 13.4 % (11.6-13.7); WHITE BLOOD COUNT (AUTO) 6.7 K/uL (4.8-10.8)
[2019-07-20 20:14] LABS: ALBUMIN 3.5 g/dL (3.4-5.0); CREATININE 1.6 mg/dL (0.6-1.3); TOTAL BILIRUBIN 0.3 mg/dL (0.0-1.0)
--- NOTE | 2019-07-20 20:33 | NUR ---
LAB CALLED FOR BLOOD SUGAR CRITICAL AT 672. DAR MADE AWARE.
[2019-07-20] MEDS ORDERED: INSULIN REGULAR, HUMAN 100 UNIT/ML VIAL IVP ONE ×3 (20:45→22:55)
--- NOTE | 2019-07-20 21:39 | NUR ---
glucoscan check- 404. Dr Martinez made aware and GLORIA Caballero.
--- NOTE | 2019-07-20 22:35 | NUR ---
BS 303
--- NOTE | 2019-07-20 23:31 | NUR ---
Patient discharged with v/s stable. Written and verbal after care instructions given and explained. Patient verbalized understanding. Called [facility] to arrange for transportation. Caregiver states she will call back in 30 mins after talking to supervisor asphalt paving.
[2019-07-21 00:26] VITALS: BP 112/68
== END 2019-07-20 23:31 | disposition home or self-care (01) ==
LOC: MED 17:44
DX: E11.65 Type 2 diabetes mellitus with hyperglycemia (principal); F20.9 Schizophrenia, unspecified; I10 Essential (primary) hypertension; Z79.4 Long term (current) use of insulin; Z79.899 Other long term (current) drug therapy
CPT/HCPCS: 36415; 36600; 70450; 80053; 82009; 82150; 82803; 83605; 83690; 85025; 87040; 96361; 96374; 96376; 99284; J1815; J7030

== ENCOUNTER 2019-09-30 01:09 | Observation (INO) | payer OTHER, SELFPAY ==
[~2019-09-30] VITALS: Ht 170.2 cm; Wt 63.5 kg
[~2019-09-30 01:09] MED LIST changes: -FERR325E14 PO; +HUMSLIDE SUBQ; -LEVO750T2 PO
--- NOTE | 2019-09-30 01:15 | NUR ---
Dr. Leon examining patient.
[2019-09-30 01:18] VITALS: BP 102/68
[2019-09-30] MEDS ORDERED: NACL 0.9% 2,000 ML IV ONE (01:20)
--- NOTE | 2019-09-30 01:39 | NUR ---
PT SHYANNE ALS. TAKEN TO BED 12
[2019-09-30 02:00] LABS: HEMATOCRIT 33.6 % (36-52); HEMOGLOBIN 11.1 g/dL (12.0-18.0); MEAN CORPUSCULAR HEMOGLOBIN 32 pg (27-31); MEAN CORPUSCULAR HGB CONC 33 g/dL (33-37); MEAN CORPUSCULAR VOLUME 95.9 fL (80-94); PLATELET COUNT (AUTO) 237 K/uL (140-450); RED BLOOD CELL COUNT(AUTO) 3.51 MIL/uL (4.20-6.10); WHITE BLOOD COUNT (AUTO) 15.9 K/uL (4.8-10.8)
[2019-09-30 02:25] LABS: LYMPHOCYTES % (MANUAL) 3 % (20-46); MONOCYTES % (MANUAL) 4 % (5-12)
[2019-09-30 02:34] LABS: ALBUMIN 3.4 g/dL (3.4-5.0); ANION GAP 16.2 (8-16); ASPARTATE AMINOTRANSFERASE 26 U/L (15-37); CARBON DIOXIDE 21.7 mmol/L (21-32); CHLORIDE 90 mmol/L (98-107); CREATININE 1.6 mg/dL (0.6-1.3); GFR ARICAN-AMERICAN 58 mL/min (>90); POTASSIUM 3.9 mmol/L (3.5-5.1); TOTAL BILIRUBIN 0.5 mg/dL (0.0-1.0); UREA NITROGEN, BLOOD 39 mg/dL (7-18)
[2019-09-30 02:36] LABS: GLUCOSE 638 mg/dL (74-106); SODIUM SERUM 124 mmol/L (136-145)
--- NOTE | 2019-09-30 02:39 | NUR ---
RECEIVED [facility] LAB REPORT FROM B[place] OF [place] 0.137. DR. GUARDADO MADE AWARE. ERMD TO SEE PATIENT.
[2019-09-30] MEDS ORDERED: ASPIRIN 325 MG TAB PO SCH (02:40)
[2019-09-30] MEDS ORDERED: VANCOMYCIN PER PHARMACY MC PRN (02:40)
[2019-09-30] MEDS ORDERED: PIPERACILLIN/TAZOBACTAM 3.375 GM in DEXTROSE 5% 50 ML IV SCH (02:40)
[2019-09-30] MEDS ORDERED: VANCOMYCIN 1GM/DEXT 5% PREMIX 200 ML IV SCH (02:40)
--- NOTE | 2019-09-30 02:41 | NUR ---
59 Y/O M BIB ALS C/O ALOC AN HOUR REED WORKER. PT BS 587 AT TRIAGE. 18G IN PLACED BY EMS ON THE LAC. PT AAOX3. RR EVEN AND UNLABORED. PT AROUSABLE TO NAME. DENIES ANY INJURY/FALL. CRACKLES NOTED ON THE RT SIDE OF LUNGS. BED IN LOWEST POSITION. SIDE RAIL UP X2. WILL CONTINUE TO MONITOR. MHX: PER EMS; DIABETES, HTN, PSYCH NKA
[2019-09-30] MEDS ORDERED: INSULIN REGULAR, HUMAN 100 UNIT/ML VIAL IVP ONE (02:50)
[2019-09-30] MEDS ORDERED: POTASSIUM CHLORIDE 10 MEQ TABER PO ONE (02:50)
[2019-09-30] MEDS ORDERED: INSULIN REGULAR, HUMAN 100 UNIT/ML VIAL IV STA (02:52)
[2019-09-30] MEDS ORDERED: ASPIRIN 325 MG TAB PO STA (02:52)
[2019-09-30] MEDS ORDERED: POTASSIUM CHLORIDE 10 MEQ TABER PO STA (02:52)
--- NOTE | 2019-09-30 02:53 | NUR ---
PT MOVED TO ER BED 10
--- NOTE | 2019-09-30 03:05 | NUR ---
INFLUENZA A AND B AND COVID-19 SWABBED AND WALKED OVER TO LAB.
[2019-09-30] MEDS ORDERED: DEXTROSE 50% 50 ML SYR IVP PRN (03:40)
[2019-09-30] MEDS ORDERED: ONDANSETRON 4 MG/2 ML VIAL IVP PRN (03:40)
--- NOTE | 2019-09-30 03:50 | NUR ---
URINE OBTAINED AND WALKED OVER TO LAB.
[2019-09-30 03:59] LABS: APPEARANCE,URINE CLEAR (CLEAR); BILIRUBIN,URINE NEGATIVE (NEGATIVE); BLOOD, URINE 1+ (NEGATIVE); COLOR,URINE YELLOW (YELLOW); LEUKOCYTE ESTERASE ,URINE NEGATIVE (NEGATIVE); NITRITE, URINE NEGATIVE (NEGATIVE); UGLUCOSE 3+ (NEGATIVE)
[2019-09-30 04:01] LABS: WBC,URINE 0-5 /HPF (0-5)
[2019-09-30] MEDS ORDERED: ROB1 PO (04:23)
[2019-09-30] MEDS ORDERED: INSU100I7 SQ (04:23)
[2019-09-30] MEDS ORDERED: LISI10TA11 PO (04:23)
[2019-09-30] MEDS ORDERED: PAX20 PO (04:23)
[2019-09-30] MEDS ORDERED: LISI2.5T12 PO (04:23)
--- NOTE | 2019-09-30 05:00 | NUR ---
ASSISTED PT TO RESTROOM VIA WHEELCHAIR. PT UNSTEADY GAIT, UNABLE TO TRANSFER FROM BED TO WHEELCHAIR. HIGH RISK FOR FALL.
[2019-09-30] MEDS ORDERED: INSULIN REGULAR, HUMAN 100 UNIT/ML VIAL IVP STA (06:19)
--- NOTE | 2019-09-30 06:34 | NUR ---
PER ERMD, OK TO GIVE NS 0.9% 2000 ML BOLUS.
--- NOTE | 2019-09-30 07:20 | NUR ---
PT AWAKE ALERT---REQUESTING TO GO TO RESTROOM FOR BM ORIENTED TO NAME PLACE TIME AND HE LIVES IN [facility]----PT AMBULATES WITH A STEADY SHUFFLE---DENIES DIZZINESS OR ANY PAIN AT THIS TIME. CONTINUES TO WAIT FOR AVAILABLE INPATIENT ROOM.
--- NOTE | 2019-09-30 07:49 | NUR ---
RETURNED TO [facility]---CONTINUES TO DENIE CHEST PAIN , HEADACHE, OR ANY PAIN AT THIS TIME---PENDING 2ND TROP
--- NOTE | 2019-09-30 08:45 | NUR ---
PATIENT HAS BEEN SCREENED AND CATEGORIZED MODERATE NUTRITION RISK. PATIENT WILL BE SEEN WITHIN 3-5 DAYS OF ADMISSION. 10/02/2019-10/04/[address]
[2019-09-30 09:40] LABS: MAGNESIUM 1.7 mg/dL (1.8-2.4); PHOSPHORUS 3.8 mg/dL (2.5-4.9)
--- NOTE | 2019-09-30 10:25 | NUR ---
SITTING UPRIGHT IN RNEY---EATING CONTINUES TO DENIE PAIN OR SOB---
[2019-09-30] MEDS: INSULIN LISPRO SLIDING SCALE 100 UNITS/ML VIAL SUBQ PRN ×2 (12:09→21:56)
--- NOTE | 2019-09-30 13:09 | NUR ---
RSV SWAB COLLECTED
[2019-09-30] MEDS ORDERED: cefTRIAXone 1,000 MG VIAL ONE (13:24)
[2019-09-30] MEDS ORDERED: MAG SULF 2000 MG/WATER PREMIX 50 ML IV SCH (13:30)
[2019-09-30 13:36] LABS: RSV NEGATIVE (NEGATIVE)
[2019-09-30] MEDS: NACL 0.9% 1,000 ML IV SCH ×2 (13:37→22:06)
[2019-09-30 14:42] LABS: APPEARANCE,URINE CLEAR (CLEAR); BLOOD, URINE TRACE (NEGATIVE); COLOR,URINE YELLOW (YELLOW); PH,URINE 5.5 (5.0-9.0); UGLUCOSE 3+ (NEGATIVE)
[2019-09-30 14:43] LABS: BILIRUBIN,URINE NEGATIVE (NEGATIVE); LEUKOCYTE ESTERASE ,URINE NEGATIVE (NEGATIVE); NITRITE, URINE NEGATIVE (NEGATIVE)
[2019-09-30 14:50] LABS: RBC,URINE 0-5 /HPF (0-5); WBC,URINE NONE SEEN /HPF (0-5)
[2019-09-30] MEDS: BLOOD GLUCOSE MONITORING 1 DEV DEV FS SCH ×2 (16:30→21:00)
--- NOTE | 2019-09-30 19:15 | NUR ---
RECIEVED REPORT FROM GLORIA LINDSEY. TRANSFER OF CARE AT THIS TIME.
--- NOTE | 2019-09-30 19:30 | NUR ---
PT PROVIDED WITH SANDWHICH, PILLOW, AND BLANKET. ALL NEEDS MET. EQUAL CHEST RISE AND FALL. CLINICAL UNIT COORDINATOR IN PLACE. SAFETY MEASURES IN PLACE.
--- NOTE | 2019-09-30 21:45 | NUR ---
ATTENDING PHYSICIAN DR HUTSON CONTACTED FOR BS OF 550. [phone] GAVE VERBAL ORDER TO ADMINISTER HUMALOG 10 UNITS AND LANTUS 15 UNITS DURING HS (FIRST DOSE NOW) ADMINSTERED SQ WITH CHECK OF SECOND RN. ABDIRIZAK JACKMAN.
[2019-09-30] MEDS ORDERED: INTUBATION KIT MC ONE (23:21)
--- NOTE | 2019-10-01 01:00 | NUR ---
PT SLEEPING IN BED COMFORTABLY. EQUAL CHEST RISE AND FALL. AIR BRAKE OPERATOR IN PLACE.
--- NOTE | 2019-10-01 04:00 | NUR ---
PT SLEEPING IN BED COMFORTABLY. EQUAL CHEST RISE AND FALL. CORPORATION OFFICER IN PLACE.
--- NOTE | 2019-10-01 04:45 | NUR ---
RECHECKED PTS BLOOD SUGAR POST ADMIN OF HUMALOG AND LANTUS. BS IS NOW 224.
--- NOTE | 2019-10-01 06:00 | NUR ---
PT SLEEPING IN BED COMFORTABLY. EQUAL CHEST RISE AND FALL. LATIN AMERICAN STUDIES DIRECTOR IN PLACE.
--- NOTE | 2019-10-01 07:22 | NUR ---
REPORT GIVEN TO GLORIA MARQUES. TRANSFER OF CARE AT THIS TIME.
--- NOTE | 2019-10-01 07:28 | NUR ---
REPORT RECEIVED FROM GLORIA BLACKMON AND [facility]
[2019-10-01] MEDS: BLOOD GLUCOSE MONITORING 1 DEV DEV FS SCH ×4 (08:12→21:35)
[2019-10-01] MEDS: NACL 0.9% 1,000 ML IV SCH ×2 (09:39→21:06)
[2019-10-01 09:40] LABS: BASOPHILS % (AUTO) 0.6 % (0.0-2.0); HEMATOCRIT 31.4 % (36-52); HEMOGLOBIN 10.4 g/dL (12.0-18.0); LYMPHOCYTES # (AUTO) 1.5 K/uL (2.0-11.5); LYMPHOCYTES % (AUTO) 20.5 % (20.5-51.1); MEAN CORPUSCULAR HEMOGLOBIN 32 pg (27-31); MEAN CORPUSCULAR HGB CONC 33 g/dL (33-37); MEAN CORPUSCULAR VOLUME 96.2 fL (80-94); MONOCYTES # (AUTO) 0.6 K/uL (0.8-1.0); MONOCYTES % (AUTO) 7.9 % (1.7-9.3); NEUTROPHILS # (AUTO) 5.1 K/uL (1.8-7.7); PLATELET COUNT (AUTO) 229 K/uL (140-450); RED BLOOD CELL COUNT(AUTO) 3.27 MIL/uL (4.20-6.10); RED CELL DISTRIBUTION WIDTH 13.4 % (11.6-13.7); WHITE BLOOD COUNT (AUTO) 7.1 K/uL (4.8-10.8)
--- NOTE | 2019-10-01 09:55 | NUR ---
Patient transferred to bed 12 for further care. RN re-evaluating the patient at bedside.
--- NOTE | 2019-10-01 10:22 | NUR ---
PT AWAKE AND RESTING IN BED. VSS AT THIS TIME.
[2019-10-01 11:04] LABS: CARBON DIOXIDE 22.1 mmol/L (21-32); CREATININE 1.1 mg/dL (0.6-1.3); POTASSIUM 4.1 mmol/L (3.5-5.1)
[2019-10-01] MEDS: INSULIN LISPRO SLIDING SCALE 100 UNITS/ML VIAL SUBQ PRN ×3 (11:41→21:35)
--- NOTE | 2019-10-01 12:15 | NUR ---
PT IN BED AWAKE. ALL VSS. WILL CONTINUE TO MONITOR. BS 397, GAVE INSULIN COVERAGE PER SLIDING SCALE
--- NOTE | 2019-10-01 14:10 | NUR ---
PT AWAKE IN BED AND ALERT. VSS. WILL CONTINUE TO MONITOR.
--- NOTE | 2019-10-01 15:27 | NUR ---
MILL HAND NOTE: Patient's Orientation Person Situation Place Time Information Provided By [facility] ADMIN Comments PATIENT IS SELF-RESPONSIBLE WITH MEDICAL DECISIONS. [facility] IS PAYEE OF PATIENT. [facility] - [phone] Price Changer, Realtionship and Phone Number RENU SHAH [phone] Healthcare Power of Roll Coverer No Does Patient Have a POLST No Identifying Problems No Social Work Triggers Is A Social Work Consult Needed No Mandate Report Filed No Explanation Of Identifying Problems PATIENT IS A 59-YEAR-OLD ELEVATED TROPONIN. PAOTIENT HAS PMHX OF HTN AND DIABETES. Admitted From Assisted Living/Resident Pre-Admission Level Of Functioning Status Independent/Ambulatory Prior Resources/Services Used In Last 12 Months Psychiatry Services Prior Resources/Service Comments PSYCHAITRIST: DR. SERGIO BRUNO Prior DME No Prior DME Used Living Situation Asst'd Living/Board &Care Patient Had Caregiver No Home Support No Caregiver Issues Financial Issues No Known Financial Issue Referral To The Financial Counselor Needed No Factors/Needs Assist Living/B & C Pl[facility] Pt/Rep Participated In Discharge Plan Yes Patient/Family Agress With Discharge Plan Yes Discharge Plan Comments TENTATIVE DISCHARGE PLAN IS FOR PATIENT TO RETURN TO [facility]. DC Plan Status Initiated
[2019-10-01] MEDS ORDERED: cefTRIAXone 1,000 MG VIAL ONE (16:33)
--- NOTE | 2019-10-01 17:20 | NUR ---
BS 211. GAVE 4 UNITS HUMALOG PER SLIDING SCALE.
--- NOTE | 2019-10-01 18:49 | NUR ---
PER DR SMART, PT NEEDS TO HAVE ONE MORE TROP DRAWN THIS PM. PT WILL STAY OVERNIGHT FOR OBSERVATION AND DISCUSS D/C IN THE AM
--- NOTE | 2019-10-01 19:18 | NUR ---
REPORT RECEIVED FROM GLORIA MARQUES FOR CONTINUATION OF CARE.
--- NOTE | 2019-10-01 20:00 | NUR ---
PT RESTING IN BED, LOCKED AND IN LOWEST POSITION ,HOB ELEVATED, SIDE RAILS X2 FOR PT SAFETY, VSS.
--- NOTE | 2019-10-01 20:30 | NUR ---
RECEIVED PATIENT FROM ER NURSE VIA [facility] FOR CONTINUITY OF CARE. TELE PATIENT. RESPIRATIONS EVEN, UNLABORED. SKIN WARM, DRY. SKIN ASSESSMENT COMPLETED. SKIN INTACT. IV SITE TO RIGHT AC 20G PATENT/INTACT, INFUSING FLUIDS WELL. NO C/O PAIN. NO S/S ACUTE DISTRESS. MRSA SCREEN COMPLETED. PATIENT ORIENTED TO ROOM/STAFF/CALL LIGHT. VITAL SIGNS STABLE. PLAN OF CARE DISCUSSED WITH PATIENT. CALL LIGHT WITHIN REACH.
--- NOTE | 2019-10-01 20:30 | NUR ---
Patient will be admitted to care of DR. PAIGE. Admited to TELEMETRY. Will go to [id number]. Belongings list completed. Report to GLORIA SHARMA.
[2019-10-01] MEDS ORDERED: INSULIN LANTUS 100 UNITS/ML 10 ML VIAL SUBQ SCH (21:00)
--- NOTE | 2019-10-01 22:00 | NUR ---
PATIENT RESTING IN BED COMFORTABLY. NO C/O PAIN. NO S/S ACUTE DISTRESS. CALL LIGHT WITHIN REACH.
[2019-10-02] VITALS: BP 129/74
--- NOTE | 2019-10-02 00:09 | NUR ---
MADE ROUNDS. PATIENT IS ASLEEP. NO S/S ACUTE DISTRESS. CALL LIGHT WITHIN REACH.
--- NOTE | 2019-10-02 01:47 | NUR ---
PATIENT IS AWAKE AND WATCHING TV. NO S/S ACUTE DISTRESS. NO C/O PAIN. CALL LIGHT WITHIN REACH.
--- NOTE | 2019-10-02 03:00 | NUR ---
PATIENT ASLEEP IN BED. NO S/S ACUTE DISTRESS. CALL LIGHT WITHIN REACH.
[2019-10-02] MEDS: NACL 0.9% 1,000 ML IV SCH (03:23)
[2019-10-02 04:00] VITALS: BP 128/63
--- NOTE | 2019-10-02 05:45 | NUR ---
MADE ROUNDS. PATIENT CONTINUES IN STABLE CONDITION. NO S/S ACUTE DISTRESS.
[2019-10-02] MEDS: INSULIN LISPRO SLIDING SCALE 100 UNITS/ML VIAL SUBQ PRN ×2 (06:00→12:20)
[2019-10-02] MEDS: BLOOD GLUCOSE MONITORING 1 DEV DEV FS SCH ×3 (06:40→16:27)
--- NOTE | 2019-10-02 07:24 | NUR ---
RECEIVED PATIENT FROM MARINE ENGINE MACHINIST NURSE FOR CONTINUITY OF CARE. PATIENT IS ASLEEP AT THIS TIME. RESPIRATIONS EVEN AND UNLABORED, ROOM AIR. VISIBLE CHEST RISE AND FALL NOTED, ON TELE MONITORING. SKIN WARM, DRY, AND INTACT. IV IN THE R AC G20, RUNNING NS AT 50 ML/HR. IVF RUNNING WELL. PATIENT IS AMBULATORY. ON STANDARD ISOLATION. SAFETY MEASURES IN PLACE. BED IN LOW POSITION. CALL LIGHT IS WITHIN REACH. WILL CONTINUE TO MONITOR.
[2019-10-02 08:00] VITALS: BP 137/72
--- NOTE | 2019-10-02 10:23 | NUR ---
PATIENT ASLEEP. NO SIGNS OF DISTRESS NOTED. BED IN LOW POSITION. CALL LIGHT IS WITHIN REACH.
[2019-10-02 12:00] VITALS: BP 138/72
--- NOTE | 2019-10-02 12:18 | NUR ---
FINGERSTICK BLOOD SUGAR: 300. WILL GIVE INSULIN COVERAGE
--- NOTE | 2019-10-02 12:22 | NUR ---
6 UNITS OF HUMALOG GIVEN FOR BS OF 300 IN THE RIGHT UPPER ARM SUBQ. PATIENT TOLERATED WELL.
--- NOTE | 2019-10-02 14:07 | NUR ---
ROCEPHIN GIVEN TO PATIENT, MEDICATION SIDE EFFECTS AND PURPOSE EXPLAINED. ASSISTED PATIENT TO RESTROOM, PT AMBULATED WITH STANDBY ASSIST. NO C/O OF PAIN. ALL NEEDS MET, CALL LIGHT WITHIN REACH, WILL CONTINUE TO MONITOR.
[2019-10-02 14:42] VITALS: BP 138/72
--- NOTE | 2019-10-02 15:09 | NUR ---
DISCHARGE INSTRUCTIONS GIVEN. JUAN C CALLED [facility]. [facility] TIME IS AT 1500. REMOVED IV SITE AND ID BAND. AWAITING FOR THE RIDE
--- NOTE | 2019-10-02 15:37 | NUR ---
SPOKE TO GLORIA KUHN TO VERIFY [facility] HAS BEEN CONTACTED. SHE STATED THAT JUAN C CHARGE NURSE CALLED AND THEY ARE WAITING ON TRANSPORTATION PROVIDED BY [facility] TO [employer]PUT[employer] DIRECTOR THE PATIENT Addendum: 10/04/19 at 1122 by Chikis Castillo CM SCHEDULED PATIENT AN APPOINTMENT WITH THE CAN [employer] TESTER DR. CEVALLOS ON Tuesday AT 11:45 AM. NOTIFIED [employer] OF HIS APPOINTMENT. WILL SET UP TRANSPORTATION FOR PATIENT WITH [facility].
--- NOTE | 2019-10-02 16:35 | NUR ---
BLOOD SUGAR CHECKED TO BE 362 , INSULIN COVERAGE OF HUMALOG 10 UNITS NEEDED AND GIVEN . PATIENT IS RESTING COMFORTABLY IN CHAIR AWAITING TRANSPORT. ALL NEEDS MET, CALL LIGHT WITHIN REACH, WILL CONTINUE TO MONITOR.
--- NOTE | 2019-10-02 16:45 | NUR ---
DISCHARGED PATIENT VIA WHEELCHAIR. PATIENT IS IN STABLE CONDITION. [facility] IS THE RIDE BACK TO PATIENT'S PLACE
--- NOTE | 2019-10-05 07:45 | NUR ---
LATE ENTRY- NORMAL SALINE 0.9% IV FLUIDS DISCONTINUED AT 2029.
== END 2019-10-02 16:40 ==
LOC: EEVIPCON 01:09 → MED 01:09 → MMU 03:37 → EEVIPCON 03:37 → MTU 08:43 → MMU 10-01 18:23
PROVIDERS: ADMIT Internal Medicine Pulmonary Disease; ATTEND Internal Medicine Pulmonary Disease
DX: Z03.818 Encounter for observation for suspected exposure to other biological agents ruled out (principal); E11.65 Type 2 diabetes mellitus with hyperglycemia; R41.0 Disorientation, unspecified; R79.89 Other specified abnormal findings of blood chemistry; I12.9 Hypertensive chronic kidney disease with stage 1 through stage 4 chronic kidney disease, or unspecified chronic kidney disease; E11.22 Type 2 diabetes mellitus with diabetic chronic kidney disease; N18.9 Chronic kidney disease, unspecified; N17.9 Acute kidney failure, unspecified; D72.829 Elevated white blood cell count, unspecified; E87.1 Hypo-osmolality and hyponatremia; Z79.4 Long term (current) use of insulin; Z79.899 Other long term (current) drug therapy
CPT/HCPCS: 36415; 70450; 71045; 76770; 80048; 80053; 81001; 82009; 82140; 82728; 82948; 83036; 83605; 83735; 84100; 84484; 85025; 87040; 87081; 87086; 87420; 87804; 93005; 96361; 96365; 96366; 96367; 96372; 96375; 96376; 99291; G0378; G0482; J0696; J1815; J3475; J7030; J7060; Q0092; U0003; 96368

== ENCOUNTER 2019-10-11 09:01 | Emergency (ER) | payer OTHER ==
[~2019-10-11] VITALS: Ht 162.6 cm; Wt 65.3 kg
[2019-10-11 09:01] VITALS: BP 143/82
[~2019-10-11 09:01] MED LIST changes: -ATOR20TA40 PO; -FOLI1TAB90 PO; -HUMSLIDE SUBQ; +INSU100I7 SQ; -LANTUS SUBQ; +LISI10TA11 PO; +LISI2.5T12 PO; +PAX20 PO; +ROB1 PO
--- NOTE | 2019-10-11 09:01 | NUR ---
Patient BIBA BLS, transferred to bed 4. RN evaluating the patient at bedside.
--- NOTE | 2019-10-11 09:01 | NUR ---
DR RAMIREZ EVALUATING PT AT THIS TIME
[2019-10-11] MEDS ORDERED: CLON0.5T PO (09:14)
[2019-10-11] MEDS ORDERED: METF1000 PO (09:14)
[2019-10-11] MEDS ORDERED: INSU100I7 SQ (09:14)
[2019-10-11] MEDS ORDERED: ROB1 PO (09:14)
--- NOTE | 2019-10-11 09:19 | NUR ---
Patient taken to CT scan via suresh by kirsten
--- NOTE | 2019-10-11 09:38 | NUR ---
Patient returned from CT scan. RN re-evaluating the patient at bedside.
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
--- NOTE | 2019-10-11 10:00 | NUR ---
Dr. Ellis is evaluating the patient at bedside.
--- NOTE | 2019-10-11 10:01 | NUR ---
DR. RAMIREZ AT BEDSIDE
--- NOTE | 2019-10-11 11:54 | NUR ---
Patient transferred to [facility] to wait for ride.
--- NOTE | 2019-10-11 12:05 | NUR ---
Patient discharged with v/s stable. Written and verbal after care instructions given and explained. Patient verbalized understanding. Ambulatory with steady gait. [facility] TO TRANSPORT PT BACK TO FACILITY. All questions addressed prior to discharge. Advised to follow up with PMD.
[2019-10-11 12:07] VITALS: BP 142/64
== END 2019-10-11 12:05 ==
LOC: MED 09:01
DX: S02.2XXA Fracture of nasal bones, initial encounter for closed fracture (principal); S00.81XA Abrasion of other part of head, initial encounter; S09.8XXA Other specified injuries of head, initial encounter; I10 Essential (primary) hypertension; E11.9 Type 2 diabetes mellitus without complications; F20.9 Schizophrenia, unspecified; Y04.0XXA Assault by unarmed brawl or fight, initial encounter; Y93.89 Activity, other specified; Y92.89 Other specified places as the place of occurrence of the external cause; Y99.8 Other external cause status
CPT/HCPCS: 70450; 70486; 90471; 90715; 99285

== ENCOUNTER 2019-11-07 16:28 | Emergency (ER) | payer OTHER ==
[~2019-11-07] VITALS: Ht 182.9 cm; Wt 78.5 kg
[~2019-11-07 16:28] MED LIST changes: -GLU500 PO; -LISI10TA11 PO; +METF1000 PO
[2019-11-07 16:44] VITALS: BP 157/71
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
[2019-11-07] MEDS: NACL 0.9% 2,000 ML IV ONE (17:06)
[2019-11-07 17:14] LABS: BASOPHILS % (AUTO) 0.2 % (0.0-2.0); HEMATOCRIT 30.4 % (36-52); HEMOGLOBIN 10.2 g/dL (12.0-18.0); LYMPHOCYTES # (AUTO) 1.2 K/uL (2.0-11.5); MEAN CORPUSCULAR HEMOGLOBIN 32 pg (27-31); MEAN CORPUSCULAR HGB CONC 34 g/dL (33-37); MEAN CORPUSCULAR VOLUME 95.6 fL (80-94); MONOCYTES # (AUTO) 0.3 K/uL (0.8-1.0); MONOCYTES % (AUTO) 5.5 % (1.7-9.3); NEUTROPHILS # (AUTO) 3.8 K/uL (1.8-7.7); NEUTROPHILS % (AUTO) 72.3 % (42.2-75.2); PLATELET COUNT (AUTO) 193 K/uL (140-450); RED BLOOD CELL COUNT(AUTO) 3.18 MIL/uL (4.20-6.10); RED CELL DISTRIBUTION WIDTH 13.2 % (11.6-13.7); WHITE BLOOD COUNT (AUTO) 5.3 K/uL (4.8-10.8)
[2019-11-07] MEDS: ACETAMINOPHEN EXTRA STRENGTH 500 MG TAB PO ONE (17:17)
--- NOTE | 2019-11-07 17:20 | NUR ---
Patient taken to CT via gurney.
--- NOTE | 2019-11-07 17:39 | NUR ---
TEMP: 101.9, ERMD MADE AWARE. PT STATES HE IS FEELING BETTER. HR: 115
[2019-11-07 18:01] LABS: ALBUMIN 2.7 g/dL (3.4-5.0); ANION GAP 18.6 (8-16); CARBON DIOXIDE 16.4 mmol/L (21-32); CREATININE 1.2 mg/dL (0.6-1.3); TOTAL BILIRUBIN 0.2 mg/dL (0.0-1.0)
[2019-11-07] MEDS: NACL 0.9% 1,000 ML IV ONE (18:37)
[2019-11-07 19:10] LABS: APPEARANCE,URINE CLEAR (CLEAR); BILIRUBIN,URINE NEGATIVE (NEGATIVE); BLOOD, URINE TRACE-I (NEGATIVE); COLOR,URINE YELLOW (YELLOW); LEUKOCYTE ESTERASE ,URINE NEGATIVE (NEGATIVE); NITRITE, URINE NEGATIVE (NEGATIVE); UGLUCOSE 3+ (NEGATIVE)
[2019-11-07 19:21] LABS: URINE AMORPHOUS URATE 1+ /HPF (None Seen); WBC,URINE 0-5 /HPF (0-5)
--- NOTE | 2019-11-07 19:27 | NUR ---
Pt report received from GLORIA Pereira. Transfer of care at this time.
--- NOTE | 2019-11-07 21:09 | NUR ---
oral temp now 98.1. made aware. 2049: repeat lactic and bmp drawn and sent to lab.
[2019-11-07 21:23] LABS: ANION GAP 16.9 (8-16); CREATININE 1.1 mg/dL (0.6-1.3); POTASSIUM 3.9 mmol/L (3.5-5.1)
[2019-11-07] MEDS: INSULIN REGULAR, HUMAN 100 UNIT/ML VIAL SUBQ ONE (22:38)
--- NOTE | 2019-11-07 22:47 | NUR ---
PT RESTING QUIETLY IN BED. VSS, R/R EQUAL, AND UNLABORED. SIDE RAIL X2, BED IN LOW POSITION, WILL CONTINUE TO MONITOR.
--- NOTE | 2019-11-08 00:23 | NUR ---
PT APPEARS TO BE SLEEPING IN BED. VSS, R/R EQUAL, AND UNLABORED. SIDE RAIL X2, BED IN LOW POSITION, WILL CONTINUE TO MONITOR.
--- NOTE | 2019-11-08 02:12 | NUR ---
PT'S TEMP IS 97.9, AND BG 106 ERMD [place] MADE AWARE.
--- NOTE | 2019-11-08 02:15 | NUR ---
PT AMBULATED TO RESTROOM WITH STEADY GAIT, REQUESTED ADDITIONAL BLANKET FOR WARMTH. VSS, R/R EQUAL, AND UNLABORED. WILL CONTINUE TO MONITOR.
--- NOTE | 2019-11-08 03:27 | NUR ---
PT APPEARS TO BE SLEEPING IN BED. VSS, R/R EQUAL, AND UNLABORED. SIDE RAIL X2, BED IN LOW POSITION, WILL CONTINUE TO MONITOR.
--- NOTE | 2019-11-08 05:23 | NUR ---
PT AMBULATED TO RESTROOM WITH STEADY GAIT, REQUESTED ADDITIONAL BLANKET FOR WARMTH. VSS, R/R EQUAL, AND UNLABORED. WILL CONTINUE TO MONITOR.
--- NOTE | 2019-11-08 07:28 | NUR ---
RECEIVED REPORT FROM GLORIA SOTO ,PT COMFORTABLE IN BED SIDE RAILS UP AND LOCK AT LOWEST POSITION .STABLE V/S NO FEVER.
--- NOTE | 2019-11-08 07:34 | NUR ---
GAVE PT BREAKFAST IN BED .PT INFORMED REGARDING HIS TRANSPORT.
--- NOTE | 2019-11-08 08:34 | NUR ---
pt comfortable in bed side rails up and lock at lowest position . no complaint at this time.
--- NOTE | 2019-11-08 10:03 | NUR ---
pt in bed stable v/s no complaint.
--- NOTE | 2019-11-08 10:59 | NUR ---
CALLED [phone] ,LINE WAS BUSY .
[2019-11-08 11:15] VITALS: BP 121/71
--- NOTE | 2019-11-08 11:16 | NUR ---
Patient discharged with v/s stable. Written and verbal after care instructions given and explained. Patient verbalized understanding. Ambulatory with to skilled nursing. All questions addressed prior to discharge. Advised to follow up with PMD.[facility] . unable to call skilled nursing line is busy rubina tovar informed and aware .
== END 2019-11-08 11:16 | disposition home or self-care (01) ==
LOC: MED 16:28
DX: T67.5XXA Heat exhaustion, unspecified, initial encounter (principal); E86.0 Dehydration; E11.65 Type 2 diabetes mellitus with hyperglycemia; I10 Essential (primary) hypertension; F20.9 Schizophrenia, unspecified; Z79.84 Long term (current) use of oral hypoglycemic drugs; Z79.899 Other long term (current) drug therapy; X30.XXXA Exposure to excessive natural heat, initial encounter; Y93.89 Activity, other specified; Y92.89 Other specified places as the place of occurrence of the external cause; Y99.8 Other external cause status
CPT/HCPCS: 36415; 70450; 71045; 80048; 80053; 81001; 83605; 83690; 83880; 84484; 85025; 85610; 87040; 87086; 93005; 96360; 96361; 96372; 99285; J1815; J7030

== ENCOUNTER 2020-09-29 10:44 | Emergency (ER) | payer OTHER ==
[~2020-09-29] VITALS: Ht 170.2 cm; Wt 72.1 kg
[2020-09-29 11:36] VITALS: BP 131/61
[2020-09-29 13:22] VITALS: BP 131/61
== END 2020-09-29 13:20 | disposition home or self-care (01) ==
LOC: MED 10:44
DX: A15.9 Respiratory tuberculosis unspecified (principal); E11.9 Type 2 diabetes mellitus without complications; I10 Essential (primary) hypertension; F17.210 Nicotine dependence, cigarettes, uncomplicated
CPT/HCPCS: 71045; 99283